=== PATIENT | female | born 1995 | race Two or more races ===

== ENCOUNTER 2024-10-11 14:53 | Outpatient (AMB) | payer MEDICAID, SELFPAY ==
--- NOTE | 2024-10-11 14:55 | OBCLNT_ITS ---
Vital Signs 10/11/24 15:08 Height 1.63 m Height Method Stated Weight 139.026 kg Weight Measurement Method Standing Scale BMI 52.6 BP 124/81 Blood Pressure Source Automatic Cuff Blood Pressure Location Left Upper Arm Position Standing Respiration 16 Pulse 87 Pulse Source Monitor Temp 97.8 F Temp Source Oral Pulse Oximetry (%) 98 Oxygen Delivery Method Room Air Allergies/Home Meds Allergies & Medications Allergies No Known Allergies Allergy (Verified 10/11/24 14:55) Intake Visit Data Collection New Patient or Established: Established Patient (seen at [facility] within 3 years) Reason for Visit:: care Seen by Clinical Staff ONLY (RN/MA): No Patient Accounts Clerk Required: No Do You Feel Safe at Home: Yes Authorities Contacted: N/A PCP or OBGYN visit in last 3 months: No Hx Now: Yes Are you currently on any form of Control: No Last menstrual period: 03/08/24 Pain Present Currently: No Pain Scale Used: Gomez-Vinson/Numerical Pain scale:: 0 Smoking Status Smoking Status: Former smoker Questionnaires Covid-19 Vaccine Questionnaire Has patient been vacinated for Covid-19 Have you been vacinated for Covid-19: No PHQ-9 PHQ-2 Over the last 2 weeks, how often have you been bothered by any of the following problems? 1. Little interest or pleasure in doing things: not at all 2. Feeling down, depressed, or hopeless: not at all Total score: 0 PHQ-9 3. Trouble falling or staying asleep, or sleeping too much: Not at all 4. Feeling tired or having little energy: Not at all 5. Poor appetite or overeating: Not at all 6. Feeling bad about yourself - or that you are a failure or have let yourself or your family down: Not at all 7. Trouble concentrating on things, such as reading the newspaper or watching television: Not at all 8. Moving or speaking so slowly that other people could have noticed? - Or the opposite - being so fidgety or restless that you have been moving around a lot more than usual: not at all 9. Thoughts that you would be better off or of hurting yourself in some way: Not at all Total score: 0 Source: Developed by Drs. Damian Masters, Jessie GomezJonathan and colleagues, with an educational carissa from [employer]. Depression screen completed yes Social History Living Situation History Marital Status: Lives With: Family Housing: House Tobacco History Smoking Status: Former smoker Second Hand Smoke Exposure: Yes Alcohol History Alcohol Intake: Current (social) Alcohol Intake Frequency: holidays/special occasions only Substance Use History Substance Use: no Domestic Abuse History Do You Feel Safe at Home: Yes Past Medical History Past Medical History Have you ever been diagnosed with any of the following: Neurological Problems Cerebrovascular Accident (CVA): No Transient Ischemic Attacks (TIA): No Dementia: No Alzheimer's Disease: No Parkinson's Disease: No Brain Tumor: No Meningitis: No Seizures: No Epilepsy: No Multiple Sclerosis: No Cerebral Palsy: No Amyotrophic Lateral Sclerosis (ALS/Kaitlin Gehrig's): No Guillain-Counce Syndrome: No Spina Bifida: No Paralysis: No Peripheral Neuropathy: No Steel's Palsy: No Subdural Hematoma: No Migraine: No Head Trauma: No Spinal Cord Injury: No Traumatic Brain Injury: No Cardiology Problems Myocardial Infarction: No Cardiac Arrhythmia: No Atrial Fibrillation: No Angina: No Heart Murmur: No Coronary Artery Disease: No Atherosclerotic Heart Disease: No Peripheral Vascular Disease: No Hypercholesterolemia: No Aneurysm: No Congestive Heart Failure: No Congenital Heart Disease: No Valvular Heart Disease: No Rheumatic Fever: No Cardiomyopathy: No Edema: No Pericarditis: No Hypertension: Yes Hypotension: No Respiratory Problems Asthma: Yes Bronchitis: No Emphysema: No Pneumonia: No Pulmonary Fibrosis: No Tuberculosis: No Pulmonary Embolism: No Pulmonary Edema: No Sleep Apnea: No CPAP Dependent: No Respiratory Aspiration: No Dyspnea: No Orthopnea: No Hx Cough: No Cough: No Wheezing: No Chest Deformities: No Smoking: No Smoking Cessation Counseling: No Smoking Exposure: Yes (FORMER) Tobacco Use: No Clubbing: No Exposure to Respiratory Irritants: No Intubation: No Stomache/Intestinal Problems Liver Cancer: No Hepatitis: No Cirrhosis: No Pancreatic Cancer: No Pancreatitis: No Celiac Disease: No Gall Bladder Disease: No Gastrointestinal Bleed: No Esophageal Varices: No Russell's Esophagus: No Colitis: No Ulcerative Colitis: No Diverticulitis: No Diverticulosis: No Ulcer: No Colorectal Cancer: No Irritable Bowel: No Crohn's Disease: No Obstructive Bowel: No Hiatal Hernia: No Hemorrhoids: No Gastroesophageal Reflux Disease: No Polyps: No Genital/Urinary Problems Chronic Kidney Disease: No Renal Disease: No Kidney Stones: No Polycystic Kidney Disease: No Neurogenic Bladder: No Inguinal Hernia: No Dialysis: No Reproductive Problems Breast Cancer: No Endometriosis: No Fibroids: No Genital Herpes: No Gonorrhea: No Pelvic Inflammatory Disease: No Polycystic Ovarian Syndrome: No Previous Pregnancies: Yes Syphilis: No Musculoskeletal Problems Muscular Dystrophy: No Myasthenia Gravis: No Marfan's Syndrome: No Bone Cancer: No Arthritis: No Head,Eye,Nose,Throat Problems Cataracts: No Glaucoma: No Blind: No Retinal Detachment: No Macular Degeneration: No Chronic Ear Infections: No Deafness: No Eye Prosthesis: No Endocrine Problems Diabetes Mellitus Type 1: Yes Diabetes Mellitus Type 2: No Hypoglycemia: No Torrington's Syndrome: No [place]'s Disease: No Hyperthyroidism: No Hypothyroidism: No Thyroid Cancer: No Parathyroid Disease: No Pituitary Disease: No Systemic Lupus Erythematosus: No Syndrome of Inappropriate Antidiuretic Hormone: No Adrenal Disease: No Graves' Disease: No Blood Problems Anemia: No Leukemia: No Hemophilia: No Thalassemia: No Sickle Cell Disease: No Clotting Problems: No Psychologic Problems Schizophrenia: No Recreational Drug Use: No Bipolar Disorder: No Depression: No Anxiety: No Behavior Problems: No Self-Mutilation: No Attention Deficit Disorder: No Attention Deficit Hyperactivity Disorder: No Depression: No Post Traumatic Stress Disorder: No Other Problems Autoimmune Disease: No Down Syndrome: No Autism: No Developmental Delay: No Cosmetic Surgery: No Shingles: No Falls: No Blood Transfusions: No Blood Transfusion Reaction: No Anesthesia Reactions: No Organ Transplant: No Surgical History Angioplasty: No Appendectomy: No Additional Surgical History: C SECTION, TONSIL REMOVAL History of Present Illness HPI Narrative Patient is a presenting for care in her third trimester, having transferred care from [facility]. She has a history of gestational diabetes in her previous , which persisted , leading to a diagnosis of type 2 diabetes. She is currently on metformin and monitors her blood glucose 2-3 times daily, primarily after lunch and dinner, with her highest recent reading being 136 mg/dL. The patient also has chronic hypertension, managed with aspirin and a once-daily medication, possibly nitrog lycerin, taken at night. She reports taking omeprazole for acid reflux and an unspecified medication for a fungal toenail infection. Her previous resulted in a section at 37 weeks due to failure to progress in labor. In her current , she denies any weight gain. Her last ultrasound was on October 04 with a high-business risk analyst, Dr. Collins, whose office is located near [facility]. The patient initially followed Dr. Quintero but has now transferred care to the current provider for the third trimester and delivery planning. She expressed initial confusion and concern about finding an office due to full schedules but is now reassured with the current care arrangement. OB Initial Visit Menstrual History Menstrual reliability: definite Flow: normal Menstrual regularity: regular Monthly: Yes Age at menarche: 11 On control pills at conception: No Date of positive home test: 05/06/24 Associated symptoms (LMP): Denies amenorrhea, nausea, vomiting, fatigue, breast tenderness, urinary frequency, irritability, bloating or other OB History : 2 Para: 1 Hx # Pregnancies: 0 Hx Total # of Abortions (Spontaneous & Elective): 0 # of Living Children: 1 Delivery History 1st : Child's name: MAURIZIO date: 05/[birth year]/21 sex: male Gestational age at delivery (weeks): 37 Delivery type: weight (lbs): 3175 g Delivery complications: GDM and GHTN, now T2DM History of depression before or after : No Infection History & Risk Evaluation History of STDs: none HIV risk evaluation: low risk Varicella/chicken pox status: immunized Infection history comments: TRICHOMONIASIS Genetic Screening & History Genetic Screening/Teratology Counseling - Includes patient, baby's father, or anyone in either family with: 1. Patient's age 35 years or older as of estimated date of delivery: No 2. Thalassemia (Equatorial [place]inean, Pashto, Mediterranean, or Background); MCV less than 80: No 3. Neural Tube Defect (Meningomyelocele, Spina Bifida, or Anencephaly): No 4. Congenital Heart Defect: No 5. Down Syndrome: No 6. Joshua-Sachs (Ashkenazi Confucianist, Cajun, Bulgarian [place]): No 7. Lea Disease (Ashkenazi Confucianist): No 8. Familial Dysautonomia (Ashkenazi Confucianist): No 9. Sickle Cell Disease or Trait (): No 10. Hemophilia or other blood disorders: No 11. Muscular Dystrophy: No 12. Cystic Fibrosis: No 13. Calvin's Chorea: No 14. Mental Retardation/Autism: No 15. Other inherited genetic or chromosomal disorder: No 16. Maternal Metabolic Disorder (EG,TYPE 1 Diabetes, PKU): No 17. Patient or baby's father had a child with defects not listed above: No 18. Recurrent loss or a stillbirth: No 19. Medications (including supplements, vitamins, herbs or otc drugs)/illicit/recreational drugs/alcohol since last menstrual period: No 20. Any other: No Infection History 1. Live with someone with TB or exposed to TB: No 2. Rash or viral illness since last menstrual period: No 3. Hepatitis B,C: No Other (see comments) Source: [employer] OB Flowsheet OB Flowsheet Initial Weight: Not Recorded Date -?-?-?-?-?-?-?-?-?-?-?-?- EGA Weight Edema CTX Effacement BP Fundal ht Pres Dilation Effacement Station Visit Note Alb Glu FHR Mov 10/11/24 -?-?-?-?-?-?-?-?-?-?-?-?- 28w 2d 139.026 kg 124/81 30 145 active Review of Systems Constitutional Constitutional: Denies fatigue Gastrointestinal Gastrointestinal: Denies bloating, Denies nausea and Denies vomiting Genitourinary Genitourinary: Denies amenorrhea and Denies urinary frequency Psychiatric Psychiatric: Denies irritability Endocrine Endocrine: Denies fatigue Exam General Limitations: no limitations General Appearance: alert, in no apparent distress, comfortable, cooperative, healthy appearing, well developed and well groomed Head Head exam: atraumatic, normocephalic and normal inspection Neck Neck exam: Present normal inspection, full ROM and trachea midline Chest Chest inspection: Present normal inspection and symmetric chest wall rise Abdominal Abdominal exam: Present soft and normal bowel sounds Exp OB exam: Present deferred Extremities Extremities exam: Present normal inspection and full ROM Neuro Neurological exam: Present alert, oriented X3 and CN II-XII intact Psych Psychiatric exam: Present normal affect and normal mood Skin Skin exam: Present warm, dry, intact and normal color Assessment & Plan Diagnosis / Problem List (1) Gestational hypertension: Status: Acute Plan: - Continue current antihypertensive regimen. - Monitor for signs of preeclampsia. (2) Type 2 diabetes mellitus affecting in third trimester, antepartum: Status: Acute Plan: - Continue current diabetes management. - Encourage weight loss (goal 10% of body weight initially). - Consider GLP-1 receptor agonist therapy as recommended by PCP. (3) Maternal care for low transverse scar from previous delivery: Status: Acute (4) Supervision of high risk , unspecified, third trimester: Status: Acute Plan: - Schedule at 38-39 weeks if blood glucose and blood pressure remain stable. - Continue current medication regimen: aspirin, antihypertensive, omeprazole, metformin, and antifungal. - Monitor fasting blood glucose levels. - Obtain records from high-risk doctor (Dr. Collins) and previous ultrasound (10/04/2024). - Follow up in 2 weeks. - Educate patient on signs of preeclampsia. - Instruct patient on normal labor signs requiring hospital visit. (5) Rh negative status during : Status: Acute Plan: Ab screen negetaive Office Procedures OB Clinic LOC & Office Proc's Nursing/Assessment Patient Status: Initial/New Patient OB Clinic Nursing Assessment: Medication Reconciliation, Update PMH in EMR and Vital Signs OB Clinic Coordination of Care: Complex Care and Chronic Disease 1-5, Education Complex Pt/Fam, Consent,records obtained, informed consent, Education Simp P t/Fam, Lab and Imaging orders, Results/Orders obtained and Staff clarify orders Special Needs: Heart tones New Patient Charge New Patient Point Assignment: 1154 New Patient Point Charge: CODING SPECIALIST HOME HEALTH Level 4 ([id number]) Antepartum Initial or Follow-up Antepartum Initial Visit: Yes OB Ultrasound OB Ultrasound Ultrasound technique:: transabdominal
[2024-10-11 15:08] VITALS: BP 124/81; PULSE 87; RESP 16; TEMP 36.6; O2SAT 98; BMI 52.6
== END 2024-10-11 15:17 | disposition home or self-care (01) ==
LOC: HODSOBC 14:53
PROVIDERS: PCP Obstetrics & Gynecology; Supervising Provider Internal Medicine; Visit Provider Obstetrics & Gynecology
DX: O09.893 Supervision of other high risk pregnancies, third trimester (principal); O10.913 Unspecified pre-existing hypertension complicating pregnancy, third trimester; O24.113 Pre-existing type 2 diabetes mellitus, in pregnancy, third trimester; O09.293 Supervision of pregnancy with other poor reproductive or obstetric history, third trimester; O34.211 Maternal care for low transverse scar from previous cesarean delivery; O99.613 Diseases of the digestive system complicating pregnancy, third trimester; K21.9 Gastro-esophageal reflux disease without esophagitis; Z87.59 Personal history of other complications of pregnancy, childbirth and the puerperium; Z3A.28 28 weeks gestation of pregnancy; Z79.84 Long term (current) use of oral hypoglycemic drugs; Z78.9 Other specified health status; Z87.891 Personal history of nicotine dependence
CPT/HCPCS: 99204; 99214; G0463

== ENCOUNTER 2024-10-25 14:16 | Outpatient (AMB) | payer MEDICAID, SELFPAY ==
--- NOTE | 2024-10-25 14:30 | AMB.OBVISIT ---
Vital Signs 10/25/24 14:31 Height 1.63 m Height Method Stated Weight 139.423 kg Weight Measurement Method Standing Scale BMI 52.4 BP 124/83 Blood Pressure Source Automatic Cuff Blood Pressure Location Left Upper Arm Position Sitting Respiration 16 Pulse 95 Pulse Source Monitor Temp 98.2 F Temp Source Oral Pulse Oximetry (%) 99 Oxygen Delivery Method Room Air Allergies/Home Meds Allergies & Medications Allergies No Known Allergies Allergy (Verified 10/25/24 14:32) Medication Reconciliation No Known Home Medications 10/25/24 [History Confirmed 10/25/24] Intake Visit Data Collection New Patient or Established: Established Patient (seen at [facility] within 3 years) Reason for Visit:: OB Check Seen by Clinical Staff ONLY (RN/MA): No Salt Plant Operator Required: No Do You Feel Safe at Home: Yes Authorities Contacted: N/A PCP or OBGYN visit in last 3 months: Yes Date of Last PCP or OBGYN visit: 10/25/24 Hx Now: Yes Are you currently on any form of Control: No Pain Present Currently: No Pain Scale Used: Gomez-Vinson/Numerical Pain scale:: 0 Smoking Status Smoking Status: Former smoker Questionnaires Covid-19 Vaccine Questionnaire Has patient been vacinated for Covid-19 Have you been vacinated for Covid-19: Yes PHQ-9 PHQ-2 Over the last 2 weeks, how often have you been bothered by any of the following problems? 1. Little interest or pleasure in doing things: not at all 2. Feeling down, depressed, or hopeless: not at all Total score: 0 PHQ-9 8. Moving or speaking so slowly that other people could have noticed? - Or the opposite - being so fidgety or restless that you have been moving around a lot more than usual: not at all Source: Developed by Drs. Damian Masters, Jessie Gomez, Jonathan Tapia and colleagues, with an educational carissa from [employer]. Depression screen completed yes Social History Living Situation History Marital Status: Lives With: Family Housing: House Tobacco History Smoking Status: Former smoker Second Hand Smoke Exposure: Yes Alcohol History Alcohol Intake: Current (social) Alcohol Intake Frequency: holidays/special occasions only Substance Use History Substance Use: no Domestic Abuse History Do You Feel Safe at Home: Yes Past Medical History Past Medical History Have you ever been diagnosed with any of the following: Neurological Problems Cerebrovascular Accident (CVA): No Transient Ischemic Attacks (TIA): No Dementia: No Alzheimer's Disease: No Parkinson's Disease: No Brain Tumor: No Meningitis: No Seizures: No Epilepsy: No Multiple Sclerosis: No Cerebral Palsy: No Amyotrophic Lateral Sclerosis (ALS/Kaitlin Gehrig's): No Guillain-Mentone Syndrome: No Spina Bifida: No Paralysis: No Peripheral Neuropathy: No Steel's Palsy: No Subdural Hematoma: No Migraine: No Head Trauma: No Spinal Cord Injury: No Traumatic Brain Injury: No Cardiology Problems Myocardial Infarction: No Cardiac Arrhythmia: No Atrial Fibrillation: No Angina: No Heart Murmur: No Coronary Artery Disease: No Atherosclerotic Heart Disease: No Peripheral Vascular Disease: No Hypercholesterolemia: No Aneurysm: No Congestive Heart Failure: No Congenital Heart Disease: No Valvular Heart Disease: No Rheumatic Fever: No Cardiomyopathy: No Edema: No Pericarditis: No Hypertension: Yes Hypotension: No Respiratory Problems Asthma: Yes Bronchitis: No Emphysema: No Pneumonia: No Pulmonary Fibrosis: No Tuberculosis: No Pulmonary Embolism: No Pulmonary Edema: No Sleep Apnea: No CPAP Dependent: No Respiratory Aspiration: No Dyspnea: No Orthopnea: No Hx Cough: No Cough: No Wheezing: No Chest Deformities: No Smoking: No Smoking Cessation Counseling: No Smoking Exposure: Yes (FORMER) Tobacco Use: No Clubbing: No Exposure to Respiratory Irritants: No Intubation: No Stomache/Intestinal Problems Liver Cancer: No Hepatitis: No Cirrhosis: No Pancreatic Cancer: No Pancreatitis: No Celiac Disease: No Gall Bladder Disease: No Gastrointestinal Bleed: No Esophageal Varices: No Russell's Esophagus: No Colitis: No Ulcerative Colitis: No Diverticulitis: No Diverticulosis: No Ulcer: No Colorectal Cancer: No Irritable Bowel: No Crohn's Disease: No Obstructive Bowel: No Hiatal Hernia: No Hemorrhoids: No Gastroesophageal Reflux Disease: No Genital/Urinary Problems Renal Disease: No Kidney Stones: No Polycystic Kidney Disease: No Neurogenic Bladder: No Inguinal Hernia: No Dialysis: No Reproductive Problems Breast Cancer: No Endometriosis: No Fibroids: No Genital Herpes: No Gonorrhea: No Pelvic Inflammatory Disease: No Polycystic Ovarian Syndrome: No Previous Pregnancies: Yes Syphilis: No Musculoskeletal Problems Muscular Dystrophy: No Myasthenia Gravis: No Marfan's Syndrome: No Bone Cancer: No Arthritis: No Head,Eye,Nose,Throat Problems Cataracts: No Glaucoma: No Blind: No Retinal Detachment: No Macular Degeneration: No Chronic Ear Infections: No Deafness: No Eye Prosthesis: No Endocrine Problems Diabetes Mellitus Type 1: Yes Diabetes Mellitus Type 2: No Hypoglycemia: No Pam's Syndrome: No Flagler's Disease: No Hyperthyroidism: No Hypothyroidism: No Thyroid Cancer: No Parathyroid Disease: No Pituitary Disease: No Systemic Lupus Erythematosus: No Syndrome of Inappropriate Antidiuretic Hormone: No Adrenal Disease: No Graves' Disease: No Blood Problems Anemia: No Leukemia: No Hemophilia: No Thalassemia: No Sickle Cell Disease: No Clotting Problems: No Psychologic Problems Schizophrenia: No Recreational Drug Use: No Bipolar Disorder: No Depression: No Anxiety: No Behavior Problems: No Self-Mutilation: No Attention Deficit Disorder: No Attention Deficit Hyperactivity Disorder: No Depression: No Post Traumatic Stress Disorder: No Other Problems Down Syndrome: No Autism: No Developmental Delay: No Cosmetic Surgery: No Shingles: No Falls: No Blood Transfusions: No Blood Transfusion Reaction: No Anesthesia Reactions: No Organ Transplant: No Surgical History Angioplasty: No Appendectomy: No History of Present Illness HPI Narrative History of Present Illness Judi Dempsey is a 29-year-old at 30 weeks and 1 day gestation presenting for follow-up. She initiated care at an outside facility and transferred care to this practice. The patient has a history of gestational hypertension, type 2 diabetes mellitus, and a previous section. She was being co-managed between her primary OB-FINANCIAL SERVICES INTERN and a high-risk OB specialist. All her previous records have been reviewed and scanned into her chart. The patient reports monitoring her blood glucose levels for the past two weeks. She typically performs two readings per day, primarily postprandial measurements. The patient acknowledges forgetting to record fasting blood glucose levels but plans to include them in future monitoring. She describes the fetus as very active, noting frequent movements. No CTX/LOF/VB, reports good FM+ Review of Systems Review of Systems Systems Reviewed: All systems reviewed, normal except as documented Visit REGINA Calculator Estimated Delivery Date Method Current WG Current Estimate 01/01/25 Ultrasound #1 30w 2d Other Estimates 12/13/24 LMP (Uncertain) 33w 0d Initial Weight: Not Recorded Date <del>?</del> EGA Weight Edema CTX Effacement BP Fundal ht Pres Dilation Effacement Station Visit Note Alb Glu FHR Mov 10/11/24 <del>?</del> 28w 2d 139.026 kg 124/81 30 145 active 10/25/24 <del>?</del> 30w 2d 139.423 kg 124/83 32 135 active Exam General Limitations: no limitations General Appearance: alert, in no apparent distress, comfortable, cooperative, healthy appearing, well developed and well groomed Head Head exam: atraumatic, normocephalic and normal inspection Neck Neck exam: Present normal inspection, full ROM and trachea midline Chest Chest inspection: Present normal inspection and symmetric chest wall rise Abdominal Abdominal exam: Present soft and normal bowel sounds Extremities Extremities exam: Present normal inspection and full ROM Back Back exam: Present normal inspection and full ROM Psych Psychiatric exam: Present normal affect and normal mood Skin Skin exam: Present warm, dry, intact and normal color Assessment & Plan Diagnosis / Problem List (1) Maternal care for low transverse scar from previous delivery: Status: Acute Plan: Patient is a 29-year-old at 30 weeks and 1 day gestation. She transferred care from an outside facility. Previous records have been reviewed and scanned into the chart. The patient reports good movement. heart rate was assessed and found to be within normal limits. - Follow-up appointment in 2 weeks - Obtain fasting blood glucose readings for next visit - Continue current medications - Repeat labs at 34 weeks to assess liver and kidney function - Initiate weekly non-stress tests (NSTs) starting at 32 weeks - Tentative scheduled for 38 weeks gestation Patient has a history of previous section, which influences the current management and delivery planning. - Planned repeat section at 38 weeks gestation, unless complications arise (2) Rh negative status during : Status: Acute (3) Gestational hypertension: Status: Acute Plan: Patient has a history of gestational hypertension. Current blood pressure was reported as okay during this visit. The condition is being monitored closely due to its potential impact on management and delivery timing. - Continue current management - Weekly NSTs to start at 32 weeks, primarily due to hypertension - Monitor for signs of preeclampsia (4) Type 2 diabetes mellitus affecting in third trimester, antepartum: Status: Acute Plan: Patient has been monitoring blood glucose levels, primarily postprandial. Reported values were reviewed and found to be within acceptable range. Fasting blood glucose levels were not recorded. - Continue current medication regimen - Patient to record and bring fasting blood glucose levels to next appointment - Maintain blood glucose monitoring, aiming for at least 2 readings per day (5) Supervision of high risk , unspecified, third trimester: Status: Acute Plan: Educated the patient on labor signs, including regular contractions, lower back pain, and changes in vaginal discharge. Advised avoiding heavy lifting and getting adequate rest. Instructed to contact the office immediately if any signs occur. Discussed the importance of a balanced diet rich in folic acid, iron, and calcium, and provided a list of recommended and to-avoid foods. Emphasized avoiding high-sugar foods to reduce gestational diabetes risk. Encouraged hydration and frequent, small meals for energy. Additional Plan Follow Up: 2 Weeks Office Procedures OB Clinic LOC & Office Proc's Nursing/Assessment Patient Status: Established Patient OB Clinic Nursing Assessment: BP Monitoring, Medication Reconciliation, Update PMH in EMR and Vital Signs OB Clinic Coordination of Care: Consent,records obtained, informed consent, Education Simp Pt/Fam, Lab and Imaging orders and Staff clarify orders Special Needs: Heart tones Established Patient Charge Established Patient Point Assignment: 120 Established Patient Point Charge: EP Level 4 (120-155)
[2024-10-25 14:31] VITALS: BP 124/83; PULSE 95; RESP 16; TEMP 36.8; O2SAT 99; BMI 52.4
== END 2024-10-25 14:40 | disposition home or self-care (01) ==
LOC: HODSOBC 14:16
PROVIDERS: PCP Physician Assistant; Referring Provider Physician Assistant; Supervising Provider Obstetrics & Gynecology; Visit Provider Obstetrics & Gynecology
DX: O09.93 Supervision of high risk pregnancy, unspecified, third trimester (principal); O26.899 Other specified pregnancy related conditions, unspecified trimester; O34.211 Maternal care for low transverse scar from previous cesarean delivery; Z67.91 Unspecified blood type, Rh negative; Z3A.30 30 weeks gestation of pregnancy
CPT/HCPCS: 99214; G0463

== ENCOUNTER 2024-11-15 14:57 | Outpatient (AMB) | payer MEDICAID, SELFPAY ==
[2024-11-15 15:09] VITALS: BP 128/78; PULSE 98; RESP 18; TEMP 35.8; O2SAT 98; BMI 52.3
--- NOTE | 2024-11-15 15:09 | OBCLNT_ITS ---
Vital Signs 11/15/24 15:09 Height 1.63 m Height Method Stated Weight 138.969 kg Weight Measurement Method Standing Scale BMI 52.3 BP 128/78 Blood Pressure Source Automatic Cuff Blood Pressure Location Left Upper Arm Position Sitting Respiration 18 Pulse 98 Pulse Source Monitor Temp 96.5 F L Temp Source Oral Pulse Oximetry (%) 98 Oxygen Delivery Method Room Air Allergies/Home Meds Allergies & Medications Allergies No Known Allergies Allergy (Verified 12/15/24 10:26) Medication Reconciliation omeprazole 20 mg capsule,delayed release 20 mg PO QDAY 90 days #90 caps 11/10/24 [Rx Confirmed 12/06/24] pen needle, diabetic 32 gauge x 1/4 (Comfort EZ Pen [place]) #100 ea 11/15/24 [Rx Confirmed 12/06/24] docusate sodium 100 mg capsule 100 mg PO QDAY 30 days #30 caps 12/16/24 [Rx] hydrocodone 5 mg-acetaminophen 325 mg tablet 1 tab PO Q6HR PRN Patient rated pain 9 to 10 7 days #28 tabs 12/16/24 [Rx] ibuprofen 400 mg tablet 800 mg (2 x 400 mg) PO Q8HR PRN Pain Scale 4-6 (Moderate 10 days #30 tabs 12/16/24 [Rx] insulin glargine 100 unit/mL (3 mL) subcutaneous pen (Lantus Solostar U-100 Insulin) 10 unit (0.1 mL) subcut QPM 30 days #3 mL 12/16/24 [Rx] labetalol 100 mg tablet 200 mg (2 x 100 mg) PO BID 30 days #120 tabs 12/16/24 [Rx] pen needle, diabetic 29 gauge x 1/2 (Comfort EZ Pen [place]) #100 ea 12/16/24 [Rx] Intake Visit Data Collection New Patient or Established: Established Patient (seen at [facility] within 3 years) Reason for Visit:: - Routine care at 33 weeks and 2 days gestation - with type 2 diabetes mellitus and gestational hypertension - Headache last week Seen by Clinical Staff ONLY (RN/MA): No Document Control Assistant Required: No Do You Feel Safe at Home: Yes Authorities Contacted: N/A PCP or OBGYN visit in last 3 months: Yes Date of Last PCP or OBGYN visit: 11/10/24 Hx Now: Yes Are you currently on any form of Control: No Pain Present Currently: No Pain Scale Used: Gomez-Vinson/Numerical Pain scale:: 0 Smoking Status Smoking Status: Former smoker Questionnaires Covid-19 Vaccine Questionnaire Has patient been vacinated for Covid-19 Have you been vacinated for Covid-19: Yes PHQ-9 PHQ-2 Over the last 2 weeks, how often have you been bothered by any of the following problems? 1. Little interest or pleasure in doing things: not at all 2. Feeling down, depressed, or hopeless: not at all Total score: 0 PHQ-9 3. Trouble falling or staying asleep, or sleeping too much: Not at all 4. Feeling tired or having little energy: Not at all 5. Poor appetite or overeating: Not at all 6. Feeling bad about yourself - or that you are a failure or have let yourself or your family down: Not at all 7. Trouble concentrating on things, such as reading the newspaper or watching television: Not at all 8. Moving or speaking so slowly that other people could have noticed? - Or the opposite - being so fidgety or restless that you have been moving around a lot more than usual: not at all 9. Thoughts that you would be better off or of hurting yourself in some way: Not at all Total score: 0 If you checked off any problems, how difficult have these problems made it for you to do your work, take care of things at home, or get along with other people?: not difficult at all Source: Developed by Drs. Damian Masters, Jessie Gomez, Jonathan Tapia and colleagues, with an educational carissa from [employer]. Depression screen completed yes Social History Living Situation History Marital Status: Lives With: Family Housing: House Tobacco History Smoking Status: Former smoker Second Hand Smoke Exposure: Yes Alcohol History Alcohol Intake: Current (social) Alcohol Intake Frequency: holidays/special occasions only Substance Use History Substance Use: no Domestic Abuse History Do You Feel Safe at Home: Yes Past Medical History Past Medical History Have you ever been diagnosed with any of the following: Neurological Problems Cerebrovascular Accident (CVA): No Transient Ischemic Attacks (TIA): No Dementia: No Alzheimer's Disease: No Parkinson's Disease: No Brain Tumor: No Meningitis: No Seizures: No Epilepsy: No Multiple Sclerosis: No Cerebral Palsy: No Amyotrophic Lateral Sclerosis (ALS/Kaitlin Gehrig's): No Guillain-[place] Syndrome: No Spina Bifida: No Paralysis: No Peripheral Neuropathy: No Steel's Palsy: No Subdural Hematoma: No Migraine: No Head Trauma: No Spinal Cord Injury: No Traumatic Brain Injury: No Cardiology Problems Myocardial Infarction: No Cardiac Arrhythmia: No Atrial Fibrillation: No Angina: No Heart Murmur: No Coronary Artery Disease: No Atherosclerotic Heart Disease: No Peripheral Vascular Disease: No Hypercholesterolemia: No Aneurysm: No Congestive Heart Failure: No Congenital Heart Disease: No Valvular Heart Disease: No Rheumatic Fever: No Cardiomyopathy: No Edema: No Pericarditis: No Hypertension: Yes Hypotension: No Respiratory Problems Asthma: Yes Bronchitis: No Emphysema: No Pneumonia: No Pulmonary Fibrosis: No Tuberculosis: No Pulmonary Embolism: No Pulmonary Edema: No Sleep Apnea: No CPAP Dependent: No Respiratory Aspiration: No Dyspnea: No Orthopnea: No Hx Cough: No Cough: No Wheezing: No Chest Deformities: No Smoking: No Smoking Cessation Counseling: No Smoking Exposure: Yes (FORMER) Tobacco Use: No Clubbing: No Exposure to Respiratory Irritants: No Intubation: No Stomache/Intestinal Problems Liver Cancer: No Hepatitis: No Cirrhosis: No Pancreatic Cancer: No Pancreatitis: No Celiac Disease: No Gall Bladder Disease: No Gastrointestinal Bleed: No Esophageal Varices: No Russell's Esophagus: No Colitis: No Ulcerative Colitis: No Diverticulitis: No Diverticulosis: No Ulcer: No Colorectal Cancer: No Irritable Bowel: No Crohn's Disease: No Obstructive Bowel: No Hiatal Hernia: No Hemorrhoids: No Gastroesophageal Reflux Disease: No Genital/Urinary Problems Renal Disease: No Kidney Stones: No Polycystic Kidney Disease: No Neurogenic Bladder: No Inguinal Hernia: No Dialysis: No Reproductive Problems Breast Cancer: No Endometriosis: No Fibroids: No Genital Herpes: No Gonorrhea: No Pelvic Inflammatory Disease: No Polycystic Ovarian Syndrome: No Previous Pregnancies: Yes Syphilis: No Musculoskeletal Problems Muscular Dystrophy: No Myasthenia Gravis: No Marfan's Syndrome: No Bone Cancer: No Arthritis: No Head,Eye,Nose,Throat Problems Cataracts: No Glaucoma: No Blind: No Retinal Detachment: No Macular Degeneration: No Chronic Ear Infections: No Deafness: No Eye Prosthesis: No Endocrine Problems Diabetes Mellitus Type 1: Yes Diabetes Mellitus Type 2: No Hypoglycemia: No Pam's Syndrome: No Selvin's Disease: No Hyperthyroidism: No Hypothyroidism: No Thyroid Cancer: No Parathyroid Disease: No Pituitary Disease: No Systemic Lupus Erythematosus: No Syndrome of Inappropriate Antidiuretic Hormone: No Adrenal Disease: No Graves' Disease: No Blood Problems Anemia: No Leukemia: No Hemophilia: No Thalassemia: No Sickle Cell Disease: No Clotting Problems: No Psychologic Problems Schizophrenia: No Recreational Drug Use: No Bipolar Disorder: No Depression: No Anxiety: No Behavior Problems: No Self-Mutilation: No Attention Deficit Disorder: No Attention Deficit Hyperactivity Disorder: No Depression: No Post Traumatic Stress Disorder: No Other Problems Down Syndrome: No Autism: No Developmental Delay: No Cosmetic Surgery: No Shingles: No Falls: No Blood Transfusions: No Blood Transfusion Reaction: No Anesthesia Reactions: No Organ Transplant: No Surgical History Angioplasty: No Appendectomy: No Visit REGINA Calculator Estimated Delivery Date Method Current WG Current Estimate 01/01/25 Ultrasound #1 37w 5d Other Estimates 12/13/24 LMP (Uncertain) 40w 3d Initial Weight: Not Recorded Date -?-?-?-?-?-?-?-?-?-?-?-?- EGA Weight Edema CTX Effacement BP Fundal ht Pres Dilation Effacement Station Visit Note Alb Glu FHR Mov 10/11/24 -?-?-?-?-?-?-?-?-?-?-?-?- 28w 2d 139.026 kg 124/81 30 145 active 10/25/24 -?-?-?-?-?-?-?-?-?-?-?-?- 30w 2d 139.423 kg 124/83 32 135 active 11/15/24 -?-?-?-?-?-?-?-?-?-?-?-?- 33w 2d 138.969 kg 128/78 No CTX/LOF/VB. Reports good FM. No GROVES/VS, Epig/RUQ pain. Type 2 DM and gestational hypertension. Headache last week, attributed to hospital visits. BP good today. On metformin 1000 mg BID, aspirin, omeprazole, and ketoconazole shampoo (used 1?2x/week). Expressed concern about ketoconazole use in . Fasting sugars elevated (123?126 mg/dL). Attending 2x weekly NSTs and ultrasounds. FHR: 147 bpm (normal). Assessment & Plan: 33w2d with GDM and gestational hypertension. Mildly elevated fasting BGs on metformin alone. Adjust metformin to 1000 mg QD and add n ighttime insulin Provide insulin instructions and monitor fasting BG daily x 1 week Follow up in 1 week to review glucose lo g Refill aspirin and continue Start low-dose antihypertensive (conside r nifedipine or Limbitrol) Continue twice weekly NSTs and ultrasoun ds Limit ketoconazole shampoo to 1x/week Resolve referral issue with Dr. Moreno/Jelani Collins Discuss timing based on glycem ic control (36?38w) Reviewed signs of labor and care counseling 145 active 11/29/24 -?-?--?-?-?-?-?-?-?-?-?-?- 35w 2d 139.026 kg 123/83 Pre gnancy with chronic hypertension - Increase labetalol to 400 mg PO BID fo r better 24-hour blood pressure control - Continue current schedule of NSTs and ultrasounds on Mondays and - Monitor biophysical profile scor es and amniotic fluid levels - Continue blood glucose monitoring; not ed to be really good - Follow-up appointment scheduled in one week - Inform patient that [facility] is not av ailable at this hospital - Plan to use pre-neurodressing with adh esive for incision care post- section - Educate patient on benefits: seals a scott, prevents contamination, can be left in place for 2 weeks, allows showering - Inform patient that outcomes are com parable to [facility] - Schedule removal of dressing in office after 2 weeks post-operation 150 active 12/06/24 -?-?-?-?-?-?-?-?-?-?-?-?- 36w 2d 140.727 kg 134/85 - C esarean section scheduled for December 15, 2024 at 12:30 PM - Patient to check in at 10:00 AM - NPO after midnight, including medica tions - Advised to hydrate well before midni ght - No further visits scheduled b efore section - Provided work note for maternity leave - Leave to start on Thursday (November) - Initial leave duration set for 2 thus from section date - Possibility of extension if needed 145 active Assessment & Plan Diagnosis / Problem List (1) Type 2 diabetes mellitus without complications: Status: Acute (2) Gestational [-induced] hypertension without significant proteinuria, third trimester: Status: Acute (3) Seborrheic dermatitis, unspecified: Status: Acute Plan Problem List - Type 2 Diabetes Mellitus (E11.9) - Gestational hypertension (O13) - , 33 weeks and 2 days gestation (Z33.1) - Seborrheic dermatitis (L21.9) - Dandruff (L21.0) Assessment - at 33 weeks 2 days gestation, REGINA 01-01-2025 - Type 2 diabetes mellitus - Gestational hypertension - Fasting blood sugars elevated (126 and 123) - Currently on metformin 1000 mg BID - heart rate 147 bpm - Recent headache - Seborrheic dermatitis treated with ketoconazole shampoo Plan - Switch to beta rodo (e.g., Limbitrol) or calcium channel rodo (e.g., nifedipine) for blood pressure management - Start small dose of blood pressure medication - Continue aspirin; patient needs refill - Reduce ketoconazole shampoo use to once weekly - Adjust metformin to 1000 mg once daily and add nighttime insulin - Provide instructions for insulin use - Patient to perform daily fasting blood sugar checks for one week - Follow up in one week to review blood sugar logs - Continue twice weekly monitoring with ultrasounds and NSTs - Resolve ultrasound referral issue with Dr. Moreno and Dr. Collins's office - Determine date (potentially at 36 or 38 weeks) based on blood sugar control Educated the patient on labor signs, including regular contractions, lower back pain, and changes in vaginal discharge. Advised avoiding heavy lifting and getting adequate rest. Instructed to contact the office immediately if any signs occur. Discussed the importance of a balanced diet rich in folic acid, iron, and calcium, and provided a list of recommended and to-avoid foods. Emphasized avoiding high-sugar foods to reduce gestational diabetes risk. Encouraged hydration and frequent, small meals for energy.. Office Procedures OB Clinic LOC & Office Proc's Nursing/Assessment Patient Status: Established Patient OB Clinic Nursing Assessment: BP Monitoring, Medication Reconciliation, Update PMH in EMR and Vital Signs OB Clinic Coordination of Care: Consent,records obtained, informed consent, Education Simp Pt/Fam and Staff clarify orders Special Needs: Heart tones Established Patient Charge Established Patient Point Assignment: 105 Established Patient Point Charge: Level 3 (00-814)
== END 2024-11-15 15:39 | disposition home or self-care (01) ==
LOC: HODSOBC 14:57
PROVIDERS: PCP Obstetrics & Gynecology; Referring Provider Obstetrics & Gynecology; Supervising Provider Obstetrics & Gynecology; Visit Provider Obstetrics & Gynecology
DX: O24.113 Pre-existing type 2 diabetes mellitus, in pregnancy, third trimester (principal); E11.9 Type 2 diabetes mellitus without complications; O13.3 Gestational [pregnancy-induced] hypertension without significant proteinuria, third trimester; O99.713 Diseases of the skin and subcutaneous tissue complicating pregnancy, third trimester; L21.9 Seborrheic dermatitis, unspecified; Z79.84 Long term (current) use of oral hypoglycemic drugs; Z3A.33 33 weeks gestation of pregnancy
CPT/HCPCS: 99213; G0463

== ENCOUNTER 2024-11-22 14:21 | Outpatient (AMB) | payer MEDICAID, SELFPAY ==
[2024-11-22 14:33] VITALS: BP 131/78; PULSE 88; RESP 16; TEMP 36.6; O2SAT 96; BMI 52.4
--- NOTE | 2024-11-22 14:33 | AMB.OBVISIT ---
Vital Signs 11/22/24 14:33 Height 1.63 m Height Method Stated Weight 139.366 kg Weight Measurement Method Standing Scale BMI 52.4 BP 131/78 H Blood Pressure Source Automatic Cuff Blood Pressure Location Left Upper Arm Position Sitting Respiration 16 Pulse 88 Pulse Source Monitor Temp 98 F Temp Source Oral Pulse Oximetry (%) 96 Oxygen Delivery Method Room Air Allergies/Home Meds Allergies & Medications Allergies No Known Allergies Allergy (Verified 11/22/24 14:34) Medication Reconciliation ketoconazole 2 % shampoo 1 applic topical Q14D 30 days #120 mL 11/10/24 [Rx Confirmed 11/22/24] omeprazole 20 mg capsule,delayed release 20 mg PO QDAY 90 days #90 caps 11/10/24 [Rx Confirmed 11/22/24] aspirin 81 mg tablet,delayed release 81 mg PO QDAY 60 days #60 tabs 11/15/24 [Rx Confirmed 11/22/24] insulin glargine 100 unit/mL subcutaneous solution (Lantus U-100 Insulin) 20 unit (0.2 mL) subcut QPM 30 days #6 mL 11/15/24 [Rx Confirmed 11/22/24] ketoconazole 2 % shampoo 1 applic topical Q7D 60 days #120 mL 11/15/24 [Rx Confirmed 11/22/24] pen needle, diabetic 32 gauge x 1/4 (Comfort EZ Pen [place]) #100 ea 11/15/24 [Rx Confirmed 11/22/24] labetalol 200 mg tablet 400 mg (2 x 200 mg) PO BID 30 days #120 tabs 11/22/24 [Rx Confirmed 11/22/24] Intake Visit Data Collection New Patient or Established: Established Patient (seen at [facility] within 3 years) Reason for Visit:: CARE Seen by Clinical Staff ONLY (RN/MA): No Human Resources Intern Required: No Do You Feel Safe at Home: Yes Authorities Contacted: N/A PCP or OBGYN visit in last 3 months: Yes Hx Now: Yes Are you currently on any form of Control: No Pain Present Currently: No Pain Scale Used: Gomez-Vinson/Numerical Pain scale:: 0 Smoking Status Smoking Status: Former smoker Questionnaires Covid-19 Vaccine Questionnaire Has patient been vacinated for Covid-19 Have you been vacinated for Covid-19: Yes PHQ-9 PHQ-2 Over the last 2 weeks, how often have you been bothered by any of the following problems? 1. Little interest or pleasure in doing things: not at all 2. Feeling down, depressed, or hopeless: not at all Total score: 0 PHQ-9 3. Trouble falling or staying asleep, or sleeping too much: Not at all 4. Feeling tired or having little energy: Not at all 5. Poor appetite or overeating: Not at all 6. Feeling bad about yourself - or that you are a failure or have let yourself or your family down: Not at all 7. Trouble concentrating on things, such as reading the newspaper or watching television: Not at all 8. Moving or speaking so slowly that other people could have noticed? - Or the opposite - being so fidgety or restless that you have been moving around a lot more than usual: not at all 9. Thoughts that you would be better off or of hurting yourself in some way: Not at all Source: Developed by Drs. Damian Masters, Jessie Gomez, Jonathan Tapia and colleagues, with an educational carissa from [employer]. Depression screen completed yes Social History Living Situation History Marital Status: Lives With: Family Housing: House Tobacco History Smoking Status: Former smoker Second Hand Smoke Exposure: Yes Alcohol History Alcohol Intake: Current (social) Alcohol Intake Frequency: holidays/special occasions only Substance Use History Substance Use: no Domestic Abuse History Do You Feel Safe at Home: Yes Past Medical History Past Medical History Have you ever been diagnosed with any of the following: Neurological Problems Cerebrovascular Accident (CVA): No Transient Ischemic Attacks (TIA): No Dementia: No Alzheimer's Disease: No Parkinson's Disease: No Brain Tumor: No Meningitis: No Seizures: No Epilepsy: No Multiple Sclerosis: No Cerebral Palsy: No Amyotrophic Lateral Sclerosis (ALS/Kaitlin Gehrig's): No Guillain-[place] Syndrome: No Spina Bifida: No Paralysis: No Peripheral Neuropathy: No Steel's Palsy: No Subdural Hematoma: No Migraine: No Head Trauma: No Spinal Cord Injury: No Traumatic Brain Injury: No Cardiology Problems Myocardial Infarction: No Cardiac Arrhythmia: No Atrial Fibrillation: No Angina: No Heart Murmur: No Coronary Artery Disease: No Atherosclerotic Heart Disease: No Peripheral Vascular Disease: No Hypercholesterolemia: No Aneurysm: No Congestive Heart Failure: No Congenital Heart Disease: No Valvular Heart Disease: No Rheumatic Fever: No Cardiomyopathy: No Edema: No Pericarditis: No Hypertension: Yes Hypotension: No Respiratory Problems Asthma: Yes Bronchitis: No Emphysema: No Pneumonia: No Pulmonary Fibrosis: No Tuberculosis: No Pulmonary Embolism: No Pulmonary Edema: No Sleep Apnea: No CPAP Dependent: No Respiratory Aspiration: No Dyspnea: No Orthopnea: No Hx Cough: No Cough: No Wheezing: No Chest Deformities: No Smoking: No Smoking Cessation Counseling: No Smoking Exposure: Yes (FORMER) Tobacco Use: No Clubbing: No Exposure to Respiratory Irritants: No Intubation: No Stomache/Intestinal Problems Liver Cancer: No Hepatitis: No Cirrhosis: No Pancreatic Cancer: No Pancreatitis: No Celiac Disease: No Gall Bladder Disease: No Gastrointestinal Bleed: No Esophageal Varices: No Russell's Esophagus: No Colitis: No Ulcerative Colitis: No Diverticulitis: No Diverticulosis: No Ulcer: No Colorectal Cancer: No Irritable Bowel: No Crohn's Disease: No Obstructive Bowel: No Hiatal Hernia: No Hemorrhoids: No Gastroesophageal Reflux Disease: No Genital/Urinary Problems Renal Disease: No Kidney Stones: No Polycystic Kidney Disease: No Neurogenic Bladder: No Inguinal Hernia: No Dialysis: No Reproductive Problems Breast Cancer: No Endometriosis: No Fibroids: No Genital Herpes: No Gonorrhea: No Pelvic Inflammatory Disease: No Polycystic Ovarian Syndrome: No Previous Pregnancies: Yes Syphilis: No Musculoskeletal Problems Muscular Dystrophy: No Myasthenia Gravis: No Marfan's Syndrome: No Bone Cancer: No Arthritis: No Head,Eye,Nose,Throat Problems Cataracts: No Glaucoma: No Blind: No Retinal Detachment: No Macular Degeneration: No Chronic Ear Infections: No Deafness: No Eye Prosthesis: No Endocrine Problems Diabetes Mellitus Type 1: Yes Diabetes Mellitus Type 2: No Hypoglycemia: No [place]'s Syndrome: No Selvin's Disease: No Hyperthyroidism: No Hypothyroidism: No Thyroid Cancer: No Parathyroid Disease: No Pituitary Disease: No Systemic Lupus Erythematosus: No Syndrome of Inappropriate Antidiuretic Hormone: No Adrenal Disease: No Graves' Disease: No Blood Problems Anemia: No Leukemia: No Hemophilia: No Thalassemia: No Sickle Cell Disease: No Clotting Problems: No Psychologic Problems Schizophrenia: No Recreational Drug Use: No Bipolar Disorder: No Depression: No Anxiety: No Behavior Problems: No Self-Mutilation: No Attention Deficit Disorder: No Attention Deficit Hyperactivity Disorder: No Depression: No Post Traumatic Stress Disorder: No Other Problems Down Syndrome: No Autism: No Developmental Delay: No Cosmetic Surgery: No Shingles: No Falls: No Blood Transfusions: No Blood Transfusion Reaction: No Anesthesia Reactions: No Organ Transplant: No Surgical History Angioplasty: No Appendectomy: No Visit REGINA Calculator Estimated Delivery Date Method Current WG Current Estimate 01/01/25 Ultrasound #1 34w 2d Other Estimates 12/13/24 LMP (Uncertain) 37w 0d Initial Weight: Not Recorded Date <del>?</del> EGA Weight Edema CTX Effacement BP Fundal ht Pres Dilation Effacement Station Visit Note Alb Glu FHR Mov 10/11/24 <del>?</del> 28w 2d 139.026 kg 124/81 30 145 active 10/25/24 <del>?</del> 30w 2d 139.423 kg 124/83 32 135 active Office Procedures OB Clinic LOC & Office Proc's Nursing/Assessment Patient Status: Established Patient OB Clinic Nursing Assessment: Medication Reconciliation, Update PMH in EMR and Vital Signs OB Clinic Coordination of Care: Complex Care and Chronic Disease 1-5, Consent,records obtained, informed consent, Education Simp Pt/Fam, Results/Orders obtained and Staff clarify orders Special Needs: Heart tones Established Patient Charge Established Patient Point Assignment: 120 Established Patient Point Charge: EP Level 4 (120-155)
== END 2024-11-22 14:48 | disposition home or self-care (01) ==
LOC: HODSOBC 14:21
PROVIDERS: PCP Obstetrics & Gynecology; Referring Provider Obstetrics & Gynecology; Supervising Provider Obstetrics & Gynecology; Visit Provider Obstetrics & Gynecology
DX: Z34.83 Encounter for supervision of other normal pregnancy, third trimester (principal); Z3A.34 34 weeks gestation of pregnancy
CPT/HCPCS: 99214; G0463

== ENCOUNTER 2024-11-29 13:32 | Outpatient (AMB) | payer MEDICAID, SELFPAY ==
[2024-11-29 13:55] VITALS: BP 123/83; PULSE 106; RESP 18; TEMP 36.3; O2SAT 97; BMI 52.3
--- NOTE | 2024-11-29 13:55 | OBCLNT_ITS ---
Vital Signs 11/29/24 13:55 Height 1.63 m Height Method Stated Weight 139.026 kg Weight Measurement Method Standing Scale BMI 52.3 BP 123/83 Blood Pressure Source Automatic Cuff Blood Pressure Location Left Upper Arm Position Sitting Respiration 18 Pulse 106 H Pulse Source Monitor Temp 97.4 F Temp Source Oral Pulse Oximetry (%) 97 Oxygen Delivery Method Room Air Allergies/Home Meds Allergies & Medications Allergies No Known Allergies Allergy (Verified 11/29/24 13:56) Medication Reconciliation ketoconazole 2 % shampoo 1 applic topical Q14D 30 days #120 mL 11/10/24 [Rx Confirmed 11/29/24] omeprazole 20 mg capsule,delayed release 20 mg PO QDAY 90 days #90 caps 11/10/24 [Rx Confirmed 11/29/24] aspirin 81 mg tablet,delayed release 81 mg PO QDAY 60 days #60 tabs 11/15/24 [Rx Confirmed 11/29/24] insulin glargine 100 unit/mL subcutaneous solution (Lantus U-100 Insulin) 20 unit (0.2 mL) subcut QPM 30 days #6 mL 11/15/24 [Rx Confirmed 11/29/24] ketoconazole 2 % shampoo 1 applic topical Q7D 60 days #120 mL 11/15/24 [Rx Confirmed 11/29/24] pen needle, diabetic 32 gauge x 1/4 (Comfort EZ Pen [place]) #100 ea 11/15/24 [Rx Confirmed 11/29/24] labetalol 200 mg tablet 400 mg (2 x 200 mg) PO BID 30 days #120 tabs 11/22/24 [Rx Confirmed 11/29/24] Intake Visit Data Collection New Patient or Established: Established Patient (seen at [facility] within 3 years) Reason for Visit:: CARE Seen by Clinical Staff ONLY (RN/MA): No Actimize Architect Required: No Do You Feel Safe at Home: Yes Authorities Contacted: N/A PCP or OBGYN visit in last 3 months: Yes Hx Now: Yes Are you currently on any form of Control: No Pain Present Currently: No Pain Scale Used: Gomez-Vinson/Numerical Pain scale:: 0 Smoking Status Smoking Status: Former smoker Questionnaires Covid-19 Vaccine Questionnaire Has patient been vacinated for Covid-19 Have you been vacinated for Covid-19: No PHQ-9 PHQ-2 Over the last 2 weeks, how often have you been bothered by any of the following problems? 1. Little interest or pleasure in doing things: not at all 2. Feeling down, depressed, or hopeless: not at all Total score: 0 PHQ-9 3. Trouble falling or staying asleep, or sleeping too much: Not at all 4. Feeling tired or having little energy: Not at all 5. Poor appetite or overeating: Not at all 6. Feeling bad about yourself - or that you are a failure or have let yourself or your family down: Not at all 7. Trouble concentrating on things, such as reading the newspaper or watching television: Not at all 8. Moving or speaking so slowly that other people could have noticed? - Or the opposite - being so fidgety or restless that you have been moving around a lot more than usual: not at all 9. Thoughts that you would be better off or of hurting yourself in some way: Not at all Total score: 0 Source: Developed by Drs. Damian Masters, Jessie Gomez, Jonathan Tapia and colleagues, with an educational carissa from [employer]. Depression screen completed yes Social History Living Situation History Lives With: Family Housing: House Tobacco History Smoking Status: Former smoker Second Hand Smoke Exposure: Yes Alcohol History Alcohol Intake: Current (social) Alcohol Intake Frequency: holidays/special occasions only Substance Use History Substance Use: no Domestic Abuse History Do You Feel Safe at Home: Yes Past Medical History Past Medical History Have you ever been diagnosed with any of the following: Neurological Problems Cerebrovascular Accident (CVA): No Transient Ischemic Attacks (TIA): No Dementia: No Alzheimer's Disease: No Parkinson's Disease: No Brain Tumor: No Meningitis: No Seizures: No Epilepsy: No Multiple Sclerosis: No Cerebral Palsy: No Amyotrophic Lateral Sclerosis (ALS/Kaitlin Gehrig's): No Guillain-[place] Syndrome: No Spina Bifida: No Paralysis: No Peripheral Neuropathy: No Steel's Palsy: No Subdural Hematoma: No Migraine: No Head Trauma: No Spinal Cord Injury: No Traumatic Brain Injury: No Cardiology Problems Myocardial Infarction: No Cardiac Arrhythmia: No Atrial Fibrillation: No Angina: No Heart Murmur: No Coronary Artery Disease: No Atherosclerotic Heart Disease: No Peripheral Vascular Disease: No Hypercholesterolemia: No Aneurysm: No Congestive Heart Failure: No Congenital Heart Disease: No Valvular Heart Disease: No Rheumatic Fever: No Cardiomyopathy: No Edema: No Pericarditis: No Hypertension: Yes Hypotension: No Respiratory Problems Asthma: Yes Bronchitis: No Emphysema: No Pneumonia: No Pulmonary Fibrosis: No Tuberculosis: No Pulmonary Embolism: No Pulmonary Edema: No Sleep Apnea: No CPAP Dependent: No Respiratory Aspiration: No Dyspnea: No Orthopnea: No Hx Cough: No Cough: No Wheezing: No Chest Deformities: No Smoking: No Smoking Cessation Counseling: No Smoking Exposure: Yes (FORMER) Tobacco Use: No Clubbing: No Exposure to Respiratory Irritants: No Intubation: No Stomache/Intestinal Problems Liver Cancer: No Hepatitis: No Cirrhosis: No Pancreatic Cancer: No Pancreatitis: No Celiac Disease: No Gall Bladder Disease: No Gastrointestinal Bleed: No Esophageal Varices: No Russell's Esophagus: No Colitis: No Ulcerative Colitis: No Diverticulitis: No Diverticulosis: No Ulcer: No Colorectal Cancer: No Irritable Bowel: No Crohn's Disease: No Obstructive Bowel: No Hiatal Hernia: No Hemorrhoids: No Gastroesophageal Reflux Disease: No Genital/Urinary Problems Renal Disease: No Kidney Stones: No Polycystic Kidney Disease: No Neurogenic Bladder: No Inguinal Hernia: No Dialysis: No Reproductive Problems Breast Cancer: No Endometriosis: No Fibroids: No Genital Herpes: No Gonorrhea: No Pelvic Inflammatory Disease: No Polycystic Ovarian Syndrome: No Previous Pregnancies: Yes Syphilis: No Musculoskeletal Problems Muscular Dystrophy: No Myasthenia Gravis: No Marfan's Syndrome: No Bone Cancer: No Arthritis: No Head,Eye,Nose,Throat Problems Cataracts: No Glaucoma: No Blind: No Retinal Detachment: No Macular Degeneration: No Chronic Ear Infections: No Deafness: No Eye Prosthesis: No Endocrine Problems Diabetes Mellitus Type 1: Yes Diabetes Mellitus Type 2: No Hypoglycemia: No Pam's Syndrome: No Napavine's Disease: No Hyperthyroidism: No Hypothyroidism: No Thyroid Cancer: No Parathyroid Disease: No Pituitary Disease: No Systemic Lupus Erythematosus: No Syndrome of Inappropriate Antidiuretic Hormone: No Adrenal Disease: No Graves' Disease: No Blood Problems Anemia: No Leukemia: No Hemophilia: No Thalassemia: No Sickle Cell Disease: No Clotting Problems: No Psychologic Problems Schizophrenia: No Recreational Drug Use: No Bipolar Disorder: No Depression: No Anxiety: No Behavior Problems: No Self-Mutilation: No Attention Deficit Disorder: No Attention Deficit Hyperactivity Disorder: No Depression: No Post Traumatic Stress Disorder: No Other Problems Down Syndrome: No Autism: No Developmental Delay: No Cosmetic Surgery: No Shingles: No Falls: No Blood Transfusions: No Blood Transfusion Reaction: No Anesthesia Reactions: No Organ Transplant: No Surgical History Angioplasty: No Appendectomy: No History of Present Illness HPI Narrative Judi Dempsey, a patient with a history of gestational diabetes and hypertension, presents for a routine follow-up. She is currently taking labetalol for blood pressure management. The patient reports that she had been taking her labetalol incorrectly, only taking 100 mg once daily instead of the prescribed 200 mg twice daily. She has since corrected this and is now taking 200 mg twice daily. Her blood sugars have been really good, and she confirms regular attendance at non-stress tests (NSTs) and ultrasounds on Mondays and . The patient mentions that her most recent ultrasound showed a score of 8 out of 8, which she understands to be positive. She also reports good movement and adequate amniotic fluid levels. Judi inquires about the possibility of using a wound VAC after her upcoming section, as she had with her previous delivery. She expresses no specific concerns or symptoms related to her current . Visit OB Visit Log OB Flowsheet Initial Weight: Not Recorded Date -?-?-?-?-?-?-?-?-?-?-?-?- EGA Weight Edema CTX Effacement BP Fundal ht Pres Dilation Effacement Station Visit Note Alb Glu FHR Mov 10/11/24 -?-?-?-?-?-?-?-?-?-?-?-?- 28w 2d 139.026 kg 124/81 30 145 active 10/25/24 -?-?-?-?-?-?-?-?-?-?-?-?- 30w 2d 139.423 kg 124/83 32 135 active 11/29/24 -?-?-?-?-?-?-?-?-?-?-?-?- 35w 2d 139.026 kg 123/83 Pre gnancy with chronic hypertension - Increase labetalol to 400 mg PO BID fo r better 24-hour blood pressure control - Continue current schedule of NSTs and ultrasounds on Mondays and - Monitor biophysical profile scor es and amniotic fluid levels - Continue blood glucose monitoring; not ed to be really good - Follow-up appointment scheduled in one week - Inform patient that WoundVAC is not av ailable at this hospital - Plan to use pre-neurodressing with adh esive for incision care post- section - Educate patient on benefits: seals a scott, prevents contamination, can be left in place for 2 weeks, allows showering - Inform patient that outcomes are com parable to WoundVAC - Schedule removal of dressing in office after 2 weeks post-operation 150 active REGINA Calculator Estimated Delivery Date Method Current WG Current Estimate 01/01/25 Ultrasound #1 35w 4d Other Estimates 12/13/24 LMP (Uncertain) 38w 2d Assessment & Plan Diagnosis / Problem List (1) Rh negative status during : Status: Acute (2) Gestational hypertension: Status: Acute (3) Type 2 diabetes mellitus affecting in third trimester, antepartum: Status: Acute (4) Maternal care for low transverse scar from previous delivery: Status: Acute (5) Supervision of high risk , unspecified, third trimester: Status: Acute Plan Judi Dempsey, patient with hypertension, presenting for routine follow-up and medication management. with chronic hypertension Assessment: Patient is currently and managing chronic hypertension with labetalol. She was initially taking an inadequate dose of 100 mg once daily due to misreading the prescription. Recently increased to 200 mg twice daily, which is still suboptimal for adequate 24-hour coverage. monitoring shows reassuring results with biophysical profile scores of 8/8 and good amniotic fluid levels. Non-stress tests (NSTs) and ultrasounds are being performed regularly on Mondays and . heart rate is within normal range at 149-150 bpm. Plan: - Increase labetalol to 400 mg PO BID for better 24-hour blood pressure control - Continue current schedule of NSTs and ultrasounds on Mondays and - Monitor biophysical profile scores and amniotic fluid levels - Continue blood glucose monitoring; noted to be really good - Follow-up appointment scheduled in one week Planned repeat section Assessment: Patient has a history of previous section and is planning for a repeat procedure. She inquired about the availability of wound VAC (Vacuum-Assisted Closure) therapy, which was used in her previous section under different insurance. Plan: - Inform patient that WoundVAC is not available at this hospital - Plan to use pre-neurodressing with adhesive for incision care post- section - Educate patient on benefits: seals area, prevents contamination, can be left in place for 2 weeks, allows showering - Inform patient that outcomes are comparable to WoundVAC - Schedule removal of dressing in office after 2 weeks post-operation Pt Education Educated the patient on labor signs, including regular contractions, lower back pain, and changes in vaginal discharge. Advised avoiding heavy lifting and getting adequate rest. Instructed to contact the office immediately if any signs occur. Discussed the importance of a balanced diet rich in folic acid, iron, and calcium, and provided a list of recommended and to-avoid foods. Emphasized avoiding high-sugar foods to reduce gestational diabetes risk. Encouraged hydration and frequent, small meals for energy. Office Procedures OB Clinic LOC & Office Proc's Nursing/Assessment Patient Status: Established Patient OB Clinic Nursing Assessment: Medication Reconciliation, Update PMH in EMR and Vital Signs OB Clinic Coordination of Care: Complex Care and Chronic Disease 1-5, Consent,records obtained, informed consent, Education Simp Pt/Fam and Staff clarify orders Special Needs: Heart tones Established Patient Charge Established Patient Point Assignment: 115 Established Patient Point Charge: EP Level 3 (80-115)
== END 2024-11-29 14:14 | disposition home or self-care (01) ==
LOC: HODSOBC 13:32
PROVIDERS: PCP Obstetrics & Gynecology; Referring Provider Obstetrics & Gynecology; Supervising Provider Obstetrics & Gynecology; Visit Provider Obstetrics & Gynecology
DX: O09.893 Supervision of other high risk pregnancies, third trimester (principal); Z3A.35 35 weeks gestation of pregnancy; O10.913 Unspecified pre-existing hypertension complicating pregnancy, third trimester; O34.211 Maternal care for low transverse scar from previous cesarean delivery; O09.293 Supervision of pregnancy with other poor reproductive or obstetric history, third trimester; O24.113 Pre-existing type 2 diabetes mellitus, in pregnancy, third trimester; E11.9 Type 2 diabetes mellitus without complications; Z87.891 Personal history of nicotine dependence; Z79.4 Long term (current) use of insulin; Z79.82 Long term (current) use of aspirin; Z79.899 Other long term (current) drug therapy
CPT/HCPCS: 99213; G0463

== ENCOUNTER 2024-12-06 14:21 | Outpatient (AMB) | payer MEDICAID, SELFPAY ==
[2024-12-06 14:52] VITALS: BP 134/85; PULSE 86; RESP 18; TEMP 36.6; O2SAT 97; BMI 52.9
--- NOTE | 2024-12-06 14:52 | OBCLNT_ITS ---
Vital Signs 12/06/24 14:52 Height 1.63 m Height Method Stated Weight 140.727 kg Weight Measurement Method Standing Scale BMI 52.9 BP 134/85 H Blood Pressure Source Automatic Cuff Blood Pressure Location Right Upper Arm Position Sitting Respiration 18 Pulse 86 Pulse Source Monitor Temp 97.8 F Temp Source Temporal Artery Scan Pulse Oximetry (%) 97 Oxygen Delivery Method Room Air Allergies/Home Meds Allergies & Medications Allergies No Known Allergies Allergy (Verified 12/06/24 14:53) Medication Reconciliation ketoconazole 2 % shampoo 1 applic topical Q14D 30 days #120 mL 11/10/24 [Rx Confirmed 12/06/24] omeprazole 20 mg capsule,delayed release 20 mg PO QDAY 90 days #90 caps 11/10/24 [Rx Confirmed 12/06/24] aspirin 81 mg tablet,delayed release 81 mg PO QDAY 60 days #60 tabs 11/15/24 [Rx Confirmed 12/06/24] insulin glargine 100 unit/mL subcutaneous solution (Lantus U-100 Insulin) 20 unit (0.2 mL) subcut QPM 30 days #6 mL 11/15/24 [Rx Confirmed 12/06/24] ketoconazole 2 % shampoo 1 applic topical Q7D 60 days #120 mL 11/15/24 [Rx Confirmed 12/06/24] pen needle, diabetic 32 gauge x 1/4 (Comfort EZ Pen Wellington) #100 ea 11/15/24 [Rx Confirmed 12/06/24] labetalol 200 mg tablet 400 mg (2 x 200 mg) PO BID 30 days #120 tabs 11/22/24 [Rx Confirmed 12/06/24] Intake Visit Data Collection New Patient or Established: Established Patient (seen at [facility] within 3 years) Reason for Visit:: Routine visit for scheduled , request for maternity leave documentation Seen by Clinical Staff ONLY (RN/MA): No Paper Mill Supervisor Required: No Do You Feel Safe at Home: Yes Authorities Contacted: N/A PCP or OBGYN visit in last 3 months: Yes Hx Now: Yes Are you currently on any form of Control: No Pain Present Currently: No Pain Scale Used: Gomez-Vinson/Numerical Pain scale:: 0 Smoking Status Smoking Status: Former smoker Questionnaires Covid-19 Vaccine Questionnaire Has patient been vacinated for Covid-19 Have you been vacinated for Covid-19: No PHQ-9 PHQ-2 Over the last 2 weeks, how often have you been bothered by any of the following problems? 1. Little interest or pleasure in doing things: not at all PHQ-9 8. Moving or speaking so slowly that other people could have noticed? - Or the opposite - being so fidgety or restless that you have been moving around a lot more than usual: not at all Source: Developed by Drs. Damian Masters, Jessie Gomez, Jonathan Tapia and colleagues, with an educational carissa from [employer]. Depression screen completed yes Social History Living Situation History Lives With: Family Housing: House Tobacco History Smoking Status: Former smoker Second Hand Smoke Exposure: Yes Alcohol History Alcohol Intake: Current (social) Alcohol Intake Frequency: holidays/special occasions only Substance Use History Substance Use: no Domestic Abuse History Do You Feel Safe at Home: Yes Past Medical History Past Medical History Have you ever been diagnosed with any of the following: Neurological Problems Cerebrovascular Accident (CVA): No Transient Ischemic Attacks (TIA): No Dementia: No Alzheimer's Disease: No Parkinson's Disease: No Brain Tumor: No Meningitis: No Seizures: No Epilepsy: No Multiple Sclerosis: No Cerebral Palsy: No Amyotrophic Lateral Sclerosis (ALS/Kaitlin Gehrig's): No Guillain-Metcalfe Syndrome: No Spina Bifida: No Paralysis: No Peripheral Neuropathy: No Steel's Palsy: No Subdural Hematoma: No Migraine: No Head Trauma: No Spinal Cord Injury: No Traumatic Brain Injury: No Cardiology Problems Myocardial Infarction: No Cardiac Arrhythmia: No Atrial Fibrillation: No Angina: No Heart Murmur: No Coronary Artery Disease: No Atherosclerotic Heart Disease: No Peripheral Vascular Disease: No Hypercholesterolemia: No Aneurysm: No Congestive Heart Failure: No Congenital Heart Disease: No Valvular Heart Disease: No Rheumatic Fever: No Cardiomyopathy: No Edema: No Pericarditis: No Hypertension: Yes Hypotension: No Respiratory Problems Asthma: Yes Bronchitis: No Emphysema: No Pneumonia: No Pulmonary Fibrosis: No Tuberculosis: No Pulmonary Embolism: No Pulmonary Edema: No Sleep Apnea: No CPAP Dependent: No Respiratory Aspiration: No Dyspnea: No Orthopnea: No Hx Cough: No Cough: No Wheezing: No Chest Deformities: No Smoking: No Smoking Cessation Counseling: No Smoking Exposure: Yes (FORMER) Tobacco Use: No Clubbing: No Exposure to Respiratory Irritants: No Intubation: No Stomache/Intestinal Problems Liver Cancer: No Hepatitis: No Cirrhosis: No Pancreatic Cancer: No Pancreatitis: No Celiac Disease: No Gall Bladder Disease: No Gastrointestinal Bleed: No Esophageal Varices: No Russell's Esophagus: No Colitis: No Ulcerative Colitis: No Diverticulitis: No Diverticulosis: No Ulcer: No Colorectal Cancer: No Irritable Bowel: No Crohn's Disease: No Obstructive Bowel: No Hiatal Hernia: No Hemorrhoids: No Gastroesophageal Reflux Disease: No Genital/Urinary Problems Renal Disease: No Kidney Stones: No Polycystic Kidney Disease: No Neurogenic Bladder: No Inguinal Hernia: No Dialysis: No Reproductive Problems Breast Cancer: No Endometriosis: No Fibroids: No Genital Herpes: No Gonorrhea: No Pelvic Inflammatory Disease: No Polycystic Ovarian Syndrome: No Previous Pregnancies: Yes Syphilis: No Musculoskeletal Problems Muscular Dystrophy: No Myasthenia Gravis: No Marfan's Syndrome: No Bone Cancer: No Arthritis: No Head,Eye,Nose,Throat Problems Cataracts: No Glaucoma: No Blind: No Retinal Detachment: No Macular Degeneration: No Chronic Ear Infections: No Deafness: No Eye Prosthesis: No Endocrine Problems Diabetes Mellitus Type 1: Yes Diabetes Mellitus Type 2: No Hypoglycemia: No Pam's Syndrome: No Selvin's Disease: No Hyperthyroidism: No Hypothyroidism: No Thyroid Cancer: No Parathyroid Disease: No Pituitary Disease: No Systemic Lupus Erythematosus: No Syndrome of Inappropriate Antidiuretic Hormone: No Adrenal Disease: No Graves' Disease: No Blood Problems Anemia: No Leukemia: No Hemophilia: No Thalassemia: No Sickle Cell Disease: No Clotting Problems: No Psychologic Problems Schizophrenia: No Recreational Drug Use: No Bipolar Disorder: No Depression: No Anxiety: No Behavior Problems: No Self-Mutilation: No Attention Deficit Disorder: No Attention Deficit Hyperactivity Disorder: No Depression: No Post Traumatic Stress Disorder: No Other Problems Down Syndrome: No Autism: No Developmental Delay: No Cosmetic Surgery: No Shingles: No Falls: No Blood Transfusions: No Blood Transfusion Reaction: No Anesthesia Reactions: No Organ Transplant: No Surgical History Angioplasty: No Appendectomy: No History of Present Illness HPI Zacarias Judi Dempsey, a woman, presents for her final visit before a scheduled . She reports feeling good overall, with no significant complaints or concerns. The patient states she has been feeling well, especially since starting to use a medicine tube, which she believes has helped provide more stability. She reports the baby is active and denies experiencing headaches or any other problems. Ms. Dempsey mentions she has been feeling good and does not report any specific symptoms or discomfort related to her . Ms. Dempsey works for the [employer] and is preparing to start her maternity leave. 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 The patient appears to be adhering to her care plan and has not reported any issues with treatment or medications. Obstetric History - Current : - Scheduled for on December 15 at 12:30 PM - Patient to check in at 10:00 AM on the day of Review of Systems General: Negative for headaches. Neurological: Negative for headaches. Neurological: Negative for headaches. Visit OB Visit Log OB Flowsheet Initial Weight: Not Recorded Date -?-?-?-?-?-?-?-?-?-?-?-?- EGA Weight Edema CTX Effacement BP Fundal ht Pres Dilation Effacement Station Visit Note Alb Glu FHR Mov 10/11/24 -?-?-?-?-?-?-?-?-?-?-?-?- 28w 2d 139.026 kg 124/81 30 145 active 10/25/24 -?-?-?-?-?-?-?-?-?-?-?-?- 30w 2d 139.423 kg 124/83 32 135 active 11/29/24 -?-?-?-?-?-?-?-?-?-?-?-?- 35w 2d 139.026 kg 123/83 Pre gnancy with chronic hypertension - Increase labetalol to 400 mg PO BID fo r better 24-hour blood pressure control - Continue current schedule of NSTs and ultrasounds on Mondays and - Monitor biophysical profile scor es and amniotic fluid levels - Continue blood glucose monitoring; not ed to be really good - Follow-up appointment scheduled in one week - Inform patient that [facility] is not av ailable at this hospital - Plan to use pre-neurodressing with adh esive for incision care post- section - Educate patient on benefits: seals a scott, prevents contamination, can be left in place for 2 weeks, allows showering - Inform patient that outcomes are com parable to [facility] - Schedule removal of dressing in office after 2 weeks post-operation 150 acti ve 12/06/24 -?-?-?-?-?-?-?-?-?-?-?-?- 36w 2d 140.727 kg 134/85 - C esarean section scheduled for December 15, 2024 at 12:30 PM - Patient to check in at 10:00 AM - NPO after midnight, including medica tions - Advised to hydrate well before midni ght - No further visits scheduled b efore section - Provided work note for maternity leave - Leave to start on Thursday (November) - Initial leave duration set for 2 mon ths from section date - Possibility of extension if needed 145 active REGINA Calculator Estimated Delivery Date Method Current WG Current Estimate 01/01/25 Ultrasound #1 36w 2d Other Estimates 12/13/24 LMP (Uncertain) 39w 0d Exam General Limitations: no limitations General Appearance: alert, in no apparent distress, comfortable, cooperative, healthy appearing, well developed and well groomed Head Head exam: atraumatic, normocephalic and normal inspection Chest Chest inspection: Present normal inspection and symmetric chest wall rise Abdominal Abdominal exam: Present soft and normal bowel sounds Psych Psychiatric exam: Present normal affect and normal mood Skin Skin exam: Present warm, dry, intact and normal color Assessment & Plan Diagnosis / Problem List (1) Rh negative status during : Status: Acute (2) Gestational hypertension: Status: Acute (3) Type 2 diabetes mellitus affecting in third trimester, antepartum: Status: Acute (4) Maternal care for low transverse scar from previous delivery: Status: Acute (5) Supervision of high risk , unspecified, third trimester: Status: Acute Plan Judi Dempsey, female, presenting for final visit before scheduled section on December 15, 2024. , term Assessment: Patient is at term with a scheduled section on December 15, 2024 at 12:30 PM. She reports feeling good, especially since starting medication (specific medication not mentioned). The baby is reported to be active, and the patient denies headaches or other problems. Blood pressure was measured at 137/138, which was noted as normal. Plan: - section scheduled for December 15, 2024 at 12:30 PM - Patient to check in at 10:00 AM - NPO after midnight, including medications - Advised to hydrate well before midnight - No further visits scheduled before section - Provided work note for maternity leave - Leave to start on Thursday (December 09, 2024) - Initial leave duration set for 2 months from section date - Possibility of extension if needed The patient was counseled regarding her history of prior delivery. Options for delivery were reviewed, including planned repeat section versus trial of labor after (TOLAC). The risks associated with TOLAC, including uterine dehiscence or rupture, were discussed. Due to hospital policy, TOLAC is not permitted at [facility]. If the patient desires TOLAC, referral to an outside facility that supports this option may be considered. The patient was informed that her delivery plan will be guided by clinical indications, type of prior uterine incision, and overall maternal and health throughout the . Educated the patient on the importance of care, including taking vitamins with folic acid, iron, and calcium. Emphasized avoiding alcohol, smoking, and certain medications. Discussed common symptoms like nausea and fatigue, advising small, frequent meals and adequate hydration. Explained the need for regular check-ups and recommended safe physical activities. Instructed on signs of complications, such as severe cramping or bleeding, and when to seek immediate medical attention. Highlighted the importance of a balanced diet and avoiding high-risk foods. Encouraged open communication about any concerns or questions. Encouraged keeping up with all appointments and tests Office Procedures OB Clinic LOC & Office Proc's Nursing/Assessment Patient Status: Established Patient OB Clinic Nursing Assessment: Medication Reconciliation, Update PMH in EMR and Vital Signs OB Clinic Coordination of Care: Complex Care and Chronic Disease 1-5, Consent,records obtained, informed consent, Education Simp Pt/Fam and Staff clarify orders Established Patient Charge Established Patient Point Assignment: 85 Established Patient Point Charge: EP Level 3 (80-115)
== END 2024-12-06 15:07 | disposition home or self-care (01) ==
LOC: HODSOBC 14:21
PROVIDERS: PCP Obstetrics & Gynecology; Referring Provider Obstetrics & Gynecology; Supervising Provider Obstetrics & Gynecology; Visit Provider Obstetrics & Gynecology
DX: O09.293 Supervision of pregnancy with other poor reproductive or obstetric history, third trimester (principal); Z3A.36 36 weeks gestation of pregnancy; O09.893 Supervision of other high risk pregnancies, third trimester; O13.3 Gestational [pregnancy-induced] hypertension without significant proteinuria, third trimester; O24.113 Pre-existing type 2 diabetes mellitus, in pregnancy, third trimester; O34.211 Maternal care for low transverse scar from previous cesarean delivery; E11.9 Type 2 diabetes mellitus without complications; O26.893 Other specified pregnancy related conditions, third trimester; Z67.91 Unspecified blood type, Rh negative; Z87.891 Personal history of nicotine dependence; Z79.4 Long term (current) use of insulin; Z79.82 Long term (current) use of aspirin; Z79.899 Other long term (current) drug therapy
CPT/HCPCS: 99213; G0463

== ENCOUNTER 2024-12-12 14:14 | Outpatient (RCR) | payer MEDICAID, SELFPAY ==
--- NOTE | 2024-11-07 14:31 | XR_ITS ---
Examination: Biophysical profile, ultrasound Date and time of exam: November 07, 2024 1435 hours INDICATIONS: Diagnosis type 2 diabetes, gestational hypertension Technique: Multiple transabdominal sonographic images of the pelvis abdomen obtained. Attention is directed to the breathing movement, gross body movement, amniotic fluid volume and tone. Findings: Amniotic fluid index 21.2 cm Total biophysical profile is 8 of 8. breathing movement is 2. Gross body movement is 2. tone is 2. Qualitative amniotic fluid volume is 2 Impression: Biophysical profile is 8 of 8.
[2024-11-07 15:20] VITALS: BP 134/81; PULSE 99; RESP 16; TEMP 36.8
--- NOTE | 2024-11-10 14:34 | XR_ITS ---
Examination: Biophysical profile, ultrasound Date and time of exam: November 10, 2024 1437 hours INDICATIONS: Type 2 diabetes, diagnosis gestational hypertension Technique: Multiple transabdominal sonographic images of the pelvis abdomen obtained. Attention is directed to the breathing movement, gross body movement, amniotic fluid volume and tone. Findings: Amniotic fluid index 17.7 cm Total biophysical profile is 8 of 8. breathing movement is 2. Gross body movement is 2. tone is 2. Qualitative amniotic fluid volume is 2 Impression: Biophysical profile is 8 of 8.
[2024-11-10 15:09] VITALS: BP 134/82; PULSE 96; RESP 16; TEMP 36.8
--- NOTE | 2024-11-14 14:26 | XR_ITS ---
Examination: Biophysical profile, ultrasound Date and time of exam: November 14, 2024 1430 hours INDICATIONS: Diagnosis type 2 diabetes, diagnosis gestational hypertension Technique: Multiple transabdominal sonographic images of the pelvis abdomen obtained. Attention is directed to the breathing movement, gross body movement, amniotic fluid volume and tone. Findings: Amniotic fluid index 21.5 cm Total biophysical profile is 8 of 8. breathing movement is 2. Gross body movement is 2. tone is 2. Qualitative amniotic fluid volume is 2 Impression: Biophysical profile is 8 of 8.
[2024-11-14 15:01] VITALS: BP 125/89; PULSE 100; RESP 16; TEMP 36.7
--- NOTE | 2024-11-17 14:30 | XR_ITS ---
Examination: Biophysical profile, ultrasound Date and time of exam: November 17, 2024 1456 hours INDICATIONS: Diagnosis type 2 diabetes, diagnosis gestational hypertension Technique: Multiple transabdominal sonographic images of the pelvis abdomen obtained. Attention is directed to the breathing movement, gross body movement, amniotic fluid volume and tone. Findings: Amniotic fluid index 18.3 cm Total biophysical profile is 8 of 8. breathing movement is 2. Gross body movement is 2. tone is 2. Qualitative amniotic fluid volume is 2 Impression: Biophysical profile is 8 of 8.
[2024-11-17 15:25] VITALS: BP 138/87; PULSE 98; RESP 16; TEMP 36.8
--- NOTE | 2024-11-21 14:13 | XR_ITS ---
Examination: Biophysical profile, ultrasound Date and time of exam: November 21, 2024 at 1421 hours INDICATIONS: Diagnosis diabetes, gestational hypertension Technique: Multiple transabdominal sonographic images of the pelvis abdomen obtained. Attention is directed to the breathing movement, gross body movement, amniotic fluid volume and tone. Findings: Amniotic fluid index 11.3 cm Total biophysical profile is 8 of 8. breathing movement is 2. Gross body movement is 2. tone is 2. Qualitative amniotic fluid volume is 2 Impression: Biophysical profile is 8 of 8.
[2024-11-21 15:01] VITALS: BP 131/86; PULSE 101; RESP 16; TEMP 36.8
--- NOTE | 2024-11-24 14:29 | XR_ITS ---
Examination: Biophysical profile, ultrasound Date and time of exam: November 24, 2024 1436 hrs. Indications: Diagnosis diabetes, diagnosis gestational hypertension Technique: Multiple transabdominal sonographic images of the pelvis abdomen obtained. Attention is directed to the breathing movement, gross body movement, amniotic fluid volume and tone. Findings: Amniotic fluid index 12.7 cm Total biophysical profile is 8 of 8. breathing movement is 2. Gross body movement is 2. tone is 2. Qualitative amniotic fluid volume is 2 Impression: Biophysical profile is 8 of 8.
[2024-11-24 15:14] VITALS: BP 117/67; PULSE 90; RESP 16; TEMP 36.7
--- NOTE | 2024-11-28 14:21 | XR_ITS ---
Examination: Biophysical profile, ultrasound Date and time of exam: November 28, 2024 1440 hours INDICATIONS: Diagnosis diabetes, diagnosis gestational hypertension Technique: Multiple transabdominal sonographic images of the pelvis abdomen obtained. Attention is directed to the breathing movement, gross body movement, amniotic fluid volume and tone. Findings: Amniotic fluid index 13.9 cm Total biophysical profile is 8 of 8. breathing movement is 2. Gross body movement is 2. tone is 2. Qualitative amniotic fluid volume is 2 Impression: Biophysical profile is 8 of 8.
[2024-11-28 15:04] VITALS: BP 133/71; PULSE 82; RESP 16; TEMP 36.7
--- NOTE | 2024-12-01 14:26 | XR_ITS ---
Examination: Biophysical profile, ultrasound Date and time of exam: December 01, 2024 1453 hours INDICATIONS: Type 2 diabetes, diagnosis gestational hypertension Technique: Multiple transabdominal sonographic images of the pelvis abdomen obtained. Attention is directed to the breathing movement, gross body movement, amniotic fluid volume and tone. Findings: Amniotic fluid index 12.9 CM Total biophysical profile is 8 of 8. breathing movement is 2. Gross body movement is 2. tone is 2. Qualitative amniotic fluid volume is 2 Impression: Biophysical profile is 8 of 8.
[2024-12-01 15:22] VITALS: BP 131/74; PULSE 91; RESP 16
--- NOTE | 2024-12-05 14:26 | XR_ITS ---
Examination: Biophysical profile, ultrasound Date and time of exam: December 05, 2024 1430 hours INDICATIONS: Diagnosis type 2 diabetes, diagnosis gestational hypertension Technique: Multiple transabdominal sonographic images of the pelvis abdomen obtained. Attention is directed to the breathing movement, gross body movement, amniotic fluid volume and tone. Findings: Amniotic fluid index 10.3 cm Total biophysical profile is 8 of 8. breathing movement is 2. Gross body movement is 2. tone is 2. Qualitative amniotic fluid volume is 2 Impression: Biophysical profile is 8 of 8.
[2024-12-05 14:42] VITALS: BP 114/66; PULSE 90; RESP 18; TEMP 37.2
--- NOTE | 2024-12-08 14:27 | XR_ITS ---
Examination: Biophysical profile, ultrasound Date and time of exam: December 08, 2024 1434 hours INDICATIONS: Diagnosis type 2 diabetes, diagnosis gestational hypertension Technique: Multiple transabdominal sonographic images of the pelvis abdomen obtained. Attention is directed to the breathing movement, gross body movement, amniotic fluid volume and tone. Findings: Amniotic fluid index 7.9 cm Total biophysical profile is 8 of 8. breathing movement is 2. Gross body movement is 2. tone is 2. Qualitative amniotic fluid volume is 2 Impression: Biophysical profile is 8 of 8.
[2024-12-08 15:25] VITALS: BP 120/73; PULSE 92; RESP 18; TEMP 36.5
--- NOTE | 2024-12-12 14:23 | XR_ITS ---
Examination: Biophysical profile, ultrasound Date and time of exam: December 12, 2024 1429 hours INDICATIONS: Diagnosis type 2 diabetes, diagnosis -induced hypertension Technique: Multiple transabdominal sonographic images of the pelvis abdomen obtained. Attention is directed to the breathing movement, gross body movement, amniotic fluid volume and tone. Findings: Amniotic fluid index 18.7 cm Total biophysical profile is 8 of 8. breathing movement is 2. Gross body movement is 2. tone is 2. Qualitative amniotic fluid volume is 2 Impression: Biophysical profile is 8 of 8.
[2024-12-12 14:39] VITALS: BP 130/77; PULSE 95; RESP 16; TEMP 36.7
== END 2024-12-12 23:59 | disposition home or self-care (01) ==
LOC: S4S1 14:14
PROVIDERS: PCP Physician Assistant; Referring Provider Obstetrics & Gynecology; Visit Provider Obstetrics & Gynecology
DX: O24.113 Pre-existing type 2 diabetes mellitus, in pregnancy, third trimester (principal); E11.9 Type 2 diabetes mellitus without complications; O13.3 Gestational [pregnancy-induced] hypertension without significant proteinuria, third trimester; O26.893 Other specified pregnancy related conditions, third trimester; Z67.91 Unspecified blood type, Rh negative; O34.211 Maternal care for low transverse scar from previous cesarean delivery; O09.93 Supervision of high risk pregnancy, unspecified, third trimester; Z3A.37 37 weeks gestation of pregnancy
CPT/HCPCS: 59025; 76819

== ENCOUNTER 2024-12-15 09:58 | Inpatient (IN) | payer MEDICAID, SELFPAY ==
[2024-12-15] VITALS (34 sets, daily range): BP systolic 126–158; BP diastolic 52–98; PULSE 87–116; RESP 16–20; TEMP 36.7–37.3; O2SAT 96–99; BMI 49.4
[2024-12-15 11:24] LABS: Basophils % (Auto) 0 % (0-2.5); Eosinophils # (Auto) 0.1 Thou/mm3 (0.0-0.5); Eosinophils % (Auto) 1 % (0-10); Hematocrit 32.1 % (36.0-46.0); Hemoglobin 10.1 g/dL (12.0-16.0); Immature Granulocytes % (Auto) 1 % (0-0); Immature Granulocytes Auto 0.06 Thou/mm3 (0.00-0.00); Lymphocytes # (Auto) 2.6 Thou/mm3 (1.0-4.8); Lymphocytes % (Auto) 22 % (10-50); Mean Corpuscular HGB Conc 31.5 g/dl (31.0-37.0); Mean Corpuscular Hemoglobin 23.3 pg (25.0-35.0); Mean Corpuscular Volume 74 fL (80-100); Monocytes # (Auto) 0.6 Thou/mm3 (0.0-0.8); Monocytes % (Auto) 5 % (0-12); Neutrophils # (Auto) 8.5 Thou/mm3 (1.8-7.7); Neutrophils % (Auto) 72 % (37-80); Nucleated Red Blood Cell % 0 /100 WBC (0); Platelet Count 371 Thou/mm3 (140-440); RDW Standard Deviation 43.5 fL (36.4-46.3); Red Blood Count 4.34 Miln/mm3 (4.00-5.20); White Blood Count 11.9 Thou/mm3 (3.6-11.0)
--- NOTE | 2024-12-15 11:42 | ESHP_ITS ---
Documentation for date of: 12/15/24 OB Labor/Induct. HPI History of Present Illness Chief complaint: Scheduled repeat low-transverse caesarean section : 2 Para: 1 pregnancies: 0 Living children: 1 History of Abortions: Spontaneous and Elective: 0 History of sections: Yes History of : No Date of last menstrual period: 02/04/24 REGINA: 01/01/25 Gestational age based on last menstrual period: 46 History of present illness: Judi Dempsey is a 29-year-old at 38 weeks and 4 days gestation who presents for a scheduled repeat low-transverse caesarean section. Her estimated due date is January 01, 2025. The patient has multiple complicating factors in this , including Rh-negative status, gestational hypertension, type 2 diabetes, and a history of previous low-transverse caesarean section. The patient denies any contractions, leakage of fluid, or vaginal bleeding. She transferred care to the current provider from [facility] in her early 3rd trimester, at which time she had poor glycemic control. Since then, her diabetes has been managed using a combination of metformin, diet control, and additional interventions in collaboration with her maternal- medicine doctor. Ms. Dempsey has been adherent to her prescribed treatment regimens, which have resulted in improved glycemic control since transferring care. She has not reported any acute complications or new symptoms related to her or underlying conditions. Medications and Supplements - Metformin - Used for glycemic control - Lovenox - For DVT prophylaxis post-operatively Review of Systems Cardiovascular: Negative for contractions. Genitourinary: Negative for leakage of fluid, vaginal bleeding. History of Present Adequate Care: Yes Labs Labs: Negative: RPR, Hepatitis B, Rubella Titre, HIV, Chlamydia, Gonorrhea and Herpes Type 1 and Unknown: Group Beta Strep Review of Systems Review of Systems Systems Reviewed: All systems reviewed, normal except as documented Past Medical History Surgical History SURGICAL: Positive Section Meds Home Medications and Allergies Allergies Allergy/AdvReac Type Severity Reaction Status Date / Time No Known Allergies Allergy Verified 12/15/24 10:26 OB Exam Physical Exam Vital signs: Temp Pulse Resp BP Pulse Ox 98.8 F 100 18 138/98 H 96 12/15/24 10:30 12/15/24 10:12/15/24 10:25 12/15/24 10:12/15/24 11:37 Constitutional Constitutional: no acute distress Routine HEENT Exam Head: Present normocephalic and atraumatic Eye: Present EOMI and PERRL ENT: Present mucous membranes moist Routine Neck Exam Neck: Present supple and trachea midline Routine Cardiovascular Exam Cardiovascular: Present RRR Routine Abdominal Exam Abdominal: Present soft and normoactive bowel sounds Detailed Labor and Delivery Exam Baseline heart rate: 145 monitor accelerations: 15x15 monitor decelerations: None Routine Extremities Exam Extremities: Present full ROM Routine Skin Exam Skin: Present intact, dry and warm Routine Neurological Exam Neurological: Present alert, oriented X3 and CN II-XII intact Routine Psychiatric Exam Psychiatric: Present normal affect and normal thought process OB Results Labs 12/15/24 11:03 Labs: Short CBC 12/15/24 Range/Units 11:03 WBC 11.9 H (3.6-11.0) Thou/mm3 Hgb 10.1 L (12.0-16.0) g/dL Hct 32.1 L (36.0-46.0) % Plt Count 371 (140-440) Thou/mm3 OB Assessment & Plan Assessment and Plan (1) Rh negative status during : Status: Acute (2) Gestational hypertension: Status: Acute (3) Type 2 diabetes mellitus affecting in third trimester, antepartum: Status: Acute (4) Maternal care for low transverse scar from previous delivery: Status: Acute Assessment and plan: Judi Dempsey is a 29-year-old at 38 weeks gestation presenting for scheduled repeat low-transverse caesarean section with multiple complications including Rh-negative status, gestational hypertension, and type 2 diabetes. Scheduled repeat low-transverse caesarean section Assessment: Patient is a 29-year-old at 38 weeks gestation with an estimated due date of January 01, 2025, presenting for scheduled repeat low- transverse caesarean section. She has a history of previous low-transverse caesarean section. Current external monitoring shows baseline heart rate of 135 with moderate acceleration, moderate variability, and no decelerations. Cervical exam was deferred. Plan: - Admit to inpatient status for scheduled repeat low-transverse section - Establish IV access - Initiate IV fluids for maintenance with normal saline at 120 mL/hr - Administer Ancef 2 grams IV for surgical prophylaxis - Apply sequential compression devices (SCDs) for DVT prophylaxis - Schedule for 1230 today - Administer pre-op medications including Precedex - Anesthesia to evaluate patient for planned spinal anesthesia, with possible general anesthesia - NICU physician notified to attend delivery - 2 units of packed RBCs on hold Type 2 diabetes mellitus in Assessment: Patient has a history of type 2 diabetes with poor glycemic control noted in early 3rd trimester. Management has included metformin, diet control, and additional interventions in collaboration with maternal- medicine. Plan: - Implement post-operative glucose monitoring Gestational hypertension Assessment: Patient has been diagnosed with gestational hypertension during this . Plan: - Monitor blood pressures closely - Pre-eclampsia labs ordered Rh-negative status Assessment: Patient has been identified as Rh-negative during this . Plan: No specific plan mentioned for Rh-negative status management. Postoperative DVT prophylaxis Assessment: Given the patient's multiple risk factors including , section, and diabetes, postoperative DVT prophylaxis is indicated. Plan: - Administer Lovenox for DVT prophylaxis postoperatively (5) Supervision of high risk , unspecified, third trimester: Status: Acute
[2024-12-15] MEDS: CITRIC ACID/SODIUM CITR 15 ML UDC (BICITRA) 30 ML PO (11:44)
[2024-12-15] MEDS: ceFAZolin/D5W 2 GM IV 2 GM/100 ML BAG IV (11:45)
[2024-12-15] MEDS: FAMOTIDINE INJ 10 MG/ML VIAL 2 ML 20 MG IV (11:45)
[2024-12-15 12:16] LABS: Syphilis Nonreactive (Nonreactive)
[2024-12-15 13:25] LABS: Partial Thromboplastin Time 28.1 Seconds (22.0-36.0)
[2024-12-15 13:27] LABS: Alanine Aminotransferase < 7 U/L (10-49); Albumin, Serum 3.8 gm/dL (3.5-5.0); Albumin/Globulin Ratio 1.6 (1.2-2.2); Alkaline Phosphatase 104 U/L (46-116); Anion Gap 11 (7-16); Aspartate Amino Transferase 11 U/L (0-34); BUN/Creatinine Ratio 13 Ratio (12-20); Bilirubin,Total 0.2 mg/dL (0.3-1.2); Blood Urea Nitrogen 9 mg/dL (9-23); Calcium 9.2 mg/dL (8.3-10.6); Calcium (Corrected) 9.4 mg/dL (8.5-10.1); Carbon Dioxide 21.6 mMol/L (20.0-31.0); Chloride 108 mMol/L (98-107); Creatinine (Component) 0.7 mg/dL (0.6-1.3); Estimated Creatinine Clearance 172.1 mL/min (>60); Globulin 2.4 gm/dL (2.3-3.5); Glucose 142 mg/dL (74-106); LDH (Lactate Dehydrogenase) 128 U/L (120-246); Osmolality,Calculated 281 (275-295); Potassium 4.5 mMol/L (3.4-5.1); Sodium 141 mMol/L (136-145); Total Protein 6.2 gm/dL (5.7-8.2); Uric Acid 5.6 mg/dL (3.1-7.8); eGFR > 60 See Note
[2024-12-15 13:49] LABS: Fibrinogen 788 mg/dL (175-375)
--- NOTE | 2024-12-15 14:26 | ESOP_ITS ---
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 The patient was brought to the operating room and identified with two patient identifiers. She was placed in the supine position, and spinal anesthesia was administered. After confirming adequate anesthesia, th e abdomen and perineum were prepped and draped in the usual sterile fashion. A Aparicio catheter was inserted for continuous bladder drainage. A low transverse (Pfannenstiel) skin incision was made using a scalpel and carried through subcutaneous tissue to the rectus fascia. The previous scar was identified and excised in its entirety. The fascia was incised transversely and dissected off the rectus muscles both superiorly and inferiorly. The rectus bellies were in the midline, and the peritoneum was entered bluntly with the surgeon?s finger. The peritoneal opening was extended to allow adequate exposure. An Javier O-ring retractor was placed for optimal visualization. Upon entering the abdominal cavity, extensive adhesions were noted between the uterus, omentum, and surrounding peritoneal structures. These were carefully lysed using sharp and blunt dissection. Significant oozing was noted from the adhesiolysis sites, which required meticulous hemostasis with electrocautery and irrigation. The lower uterine segment was palpated, and the bladder flap was reflected inferiorly. A low transverse uterine incision (Hansa Mac) was made with a scalpel and extended bluntly. The amniotic membranes were ruptured, and clear fluid was released. The fetus was in vertex presentation. A Mityvac vacuum device was applied to the head. Vacuum-assisted delivery was accomplished without any pop-offs. A single loop of nuchal cord was noted and reduced. The shoulders and body were delivered smoothly with gentle fundal pressure. The umbilical cord was doubly clamped and cut, and the infant was handed to the awaiting team. Cord gases were obtained. The placenta was delivered with gentle traction on the cord. The uterine cavity was cleared of membranes and clots. The hysterotomy angles were secured with Allis clamps. Persistent bleeding was noted from the left uterine artery. Hemostasis was achieved with placement of compression sutures using 0 Vicryl. The uterine incision was closed in two layers using #1 Monocryl: the first layer was a running locked suture to approximate the myometrium, and the second layer imbricated the serosa and myometrium. Hemostasis was confirmed. The Javier retractor was removed. Peritoneal edges and rectus muscles were reapproximated. Rectus fascia was closed with running 0 Vicryl. The subcutaneous tissue was irrigated with warm saline, and bleeding points were cauterized using Bovie electrocautery. Subcutaneous tissue was approximated with 3-0 Vicryl. The skin was closed using INSORB absorbable ghassan. A sterile dressing was applied. The patient was cleaned, undraped, and transferred to the recovery room in stable and awake condition. She tolerated the procedure well. All counts were correct ?2. Estimated blood loss (ml): 800 Complications: none Surgical staff Operation Date: 12/15/24 12:45 Case Staff Assisting Surgeon: Chaka Walters CRUSHER ASSEMBLER: Ralph Villarreal Diagnosis Discharge Diagnosis (1) Rh negative status during : Status: Acute (2) Gestational hypertension: Status: Acute (3) Type 2 diabetes mellitus affecting in third trimester, antepartum: Status: Acute (4) Maternal care for low transverse scar from previous delivery: Status: Acute (5) Supervision of high risk , unspecified, third trimester: Status: Acute Problem List Completed Was Problem List Reviewed/Reconciled?: Yes
--- NOTE | 2024-12-15 14:27 | PD.LDDELS ---
Data (Blum) Data Hx Section: Yes Reason for Primary Section: repeat c/s Delivery Data (Blum) Delivery Data Delivered by: Chaka Walters
--- NOTE | 2024-12-15 16:50 | PC.NURSE ---
Dr. Walters notified of patients systolic BP reanging from 148-158, with recent BP of 158/73, orders procardia 1mg one time to be given now and to remain on scheduled labetalol as ordered.
[2024-12-15] MEDS: NIFEdipine 10 MG CAPSULE PO (16:55)
[2024-12-15] MEDS: INSULIN LISPRO (AdmeLOG) 1 UNIT/0.01 ML UNIT SC (17:30)
[2024-12-15] MEDS: OXYTOCIN in NS 20 units 20 UNIT/1,000 ML BAG 125 UNIT IV (17:34)
[2024-12-15] MEDS: INSULIN GLARGINE (Lantus) 5 UNIT/0.05 ML (PER 5 UNITS) 10 UNIT SC (21:06)
[2024-12-15] MEDS: ACETAMINOPHEN 325 MG TABLET 650 MG PO (21:26)
[2024-12-16] VITALS (10 sets, daily range): BP systolic 99–141; BP diastolic 58–94; PULSE 85–98; RESP 16–18; TEMP 36.6–36.7; O2SAT 96–99; BMI 49.1
[2024-12-16] MEDS: KETOROLAC INJ 30 MG/ML VIAL IVP (01:50)
[2024-12-16 06:19] LABS: Basophils % (Auto) 0 % (0-2.5); Eosinophils % (Auto) 0 % (0-10); Hematocrit 25.2 % (36.0-46.0); Immature Granulocytes % (Auto) 1 % (0-0); Immature Granulocytes Auto 0.13 Thou/mm3 (0.00-0.00); Lymphocytes # (Auto) 3.7 Thou/mm3 (1.0-4.8); Lymphocytes % (Auto) 21 % (10-50); Mean Corpuscular HGB Conc 31.7 g/dl (31.0-37.0); Mean Corpuscular Hemoglobin 23.5 pg (25.0-35.0); Mean Corpuscular Volume 74 fL (80-100); Monocytes # (Auto) 1.1 Thou/mm3 (0.0-0.8); Monocytes % (Auto) 6 % (0-12); Neutrophils # (Auto) 12.7 Thou/mm3 (1.8-7.7); Neutrophils % (Auto) 72 % (37-80); Nucleated Red Blood Cell % 0 /100 WBC (0); Platelet Count 337 Thou/mm3 (140-440); RDW Standard Deviation 43.9 fL (36.4-46.3); Red Blood Count 3.41 Miln/mm3 (4.00-5.20); White Blood Count 17.6 Thou/mm3 (3.6-11.0)
[2024-12-16] MEDS: DOCUSATE SOD 100 MG CAPSULE PO (08:49)
--- NOTE | 2024-12-16 10:02 | ESPR_ITS ---
RE: BEN SIMMONS : 1995 DATE OF SERVICE: 12/16/2024 SUBJECTIVE: Postoperative day #1, the patient denies any problem or complaint. She is voiding. She is ambulating. She is tolerating a regular diet. She is passing flatus. She denies any excessive vaginal bleeding. She denies any dizziness or lightheadedness. She denies any chest pain, palpitations, shortness of breath, or lower extremity pain. OBJECTIVE: Vital Signs: Blood pressure 121/79, heart rate 88, respirations 17, temperature 98.6. Lungs: Clear to auscultation bilaterally. Heart: Regular rate and rhythm. Abdomen: Dressing is dry and intact. Fundus is firm, nondistended. Extremities: Nontender. LABORATORY DATA: Hemoglobin pre-delivery 10.1 g/dL, post-delivery 8.0 g/dL. ASSESSMENT: 1. Postop day #1 status post delivery. 2. Chronic hypertension, on labetalol with stable blood pressures. 3. Gestational diabetes mellitus, class B diabetes mellitus. PLAN: Continue Lantus 10 units every p.m. and cover with sliding scale as needed. Continue ADA diet. Remove dressing. Encourage ambulation. Discontinue IV. Possible discharge home tomorrow. DT: 08:06:29 TT: 10:00:00 Ref: [id number] - TID: [id number]
[2024-12-16] MEDS: HYDROcodone/APAP 5/325 TABLET 1 TAB PO ×2 (14:56→19:47)
[2024-12-16] MEDS: LABETALOL 100 MG TABLET 200 MG PO (21:13)
[2024-12-16] MEDS: INSULIN GLARGINE (Lantus) 5 UNIT/0.05 ML (PER 5 UNITS) 10 UNIT SC (21:16)
[2024-12-17] MEDS: SIMETHICONE 80 MG CHEW PO (00:31)
[2024-12-17] MEDS: HYDROcodone/APAP 5/325 TABLET 1 TAB PO (00:31)
[2024-12-17 03:31] VITALS: BP 144/87; PULSE 92; RESP 20; TEMP 36.6; O2SAT 97
[2024-12-17 07:05] VITALS: BP 123/76; PULSE 94; RESP 20; TEMP 36.8; O2SAT 98
[2024-12-17] MEDS: IBUPROFEN TAB 400 MG TABLET 800 MG PO (07:06)
[2024-12-17] MEDS: Milk Of Magnesia Susp 30 ML UDC PO (07:14)
[2024-12-17 08:11] VITALS: BP 123/76; PULSE 94
[2024-12-17] MEDS: DOCUSATE SOD 100 MG CAPSULE PO (08:11)
[2024-12-17] MEDS: LABETALOL 100 MG TABLET 200 MG PO (08:11)
--- NOTE | 2024-12-17 09:06 | PD.LDPPPRG ---
Subjective Subjective Interval history: The patient is a 29-year-old -0-0-2 status post repeat by Dr. Walters 12/15/2024. She sees Dr. Walters in the office. It was a difficult and the patient had a lot of adhesions. The baby was also low in the canal. This morning, the patient is resting comfortably sitting at the side of the bed holding the baby. She denies heavy bleeding or fevers. She is bottlefeeding. She would like to go home. Her is asleep in the chair at the side of the bed. Exam Vital Signs Temp Pulse Resp BP Pulse Ox O2 Del Method 98.2 F 94 20 123/76 98 Room Air 12/17/24 07:05 12/17/24 08:11 12/17/24 07:05 12/17/24 08:11 12/17/24 07:05 12/17/24 07:05 Narrative Exam Patient is alert and oriented x 3 in no apparent distress. Fundus is firm. Abdomen is quite obese. Incision is clean dry and intact. Extremities show 1+ pitting edema of ankles. Objective Labs 12/16/24 04:37 12/15/24 12:50 Assessment & Plan Problem List (1) Rh negative status during : Status: Acute Assessment and plan: RhoGAM workup completed (2) Gestational hypertension: Status: Acute Assessment and plan: Home on blood pressure medication (3) Type 2 diabetes mellitus affecting in third trimester, antepartum: Status: Acute (4) Maternal care for low transverse scar from previous delivery: Status: Acute Assessment and plan: Discharge instructions given. Pain meds given. Wound care discussed in detail. Patient to keep incision clean and very dry.. She is to place foot powder or jock itch powder on the incision twice a day and keep a facecloth or some type of cloth on her incision under her pannus to keep it from getting sweaty and developing a yeast cellulitis (5) Supervision of high risk , unspecified, third trimester: Status: Acute (6) Delivery by section of full-term infant: Status: Acute Assessment and plan: Discharge instructions given (7) Morbid obesity: Status: Acute Assessment and plan: Lovenox Time Spent With Patient Time: Total time spent is greater than 50% in coordination of care (as documented) at patient's floor/unit and/or counseling patient: Time with patient: less than 15 minutes
--- NOTE | 2024-12-17 09:12 | ESDS_ITS ---
DS: Providers Provider Date of admission: 12/15/24 09:58 Primary care physician: Pia Hoyos PA-C Admitting Provider: Chaka Walters MD Attending Provider on Admission: Charles Jones MD Consults: 12/15/24 12:30 Referral Registered Dietitian Routine Comment: 12/15/24 14:26 Referral Routine Comment: Attending Provider on DC: Cecy Fajardo MD ([facility]) Discharging Provider: Cecy Fajardo MD ([facility]) DS: Diagnosis Problem List Completed Was Problem List Reviewed/Reconciled?: Yes Summary/Hosp Course Brief History: Judi Dempsey is a 29-year-old at 38 weeks and 4 days gestation who presents for a scheduled repeat low-transverse caesarean section. Her estimated due date is January 01, 2025. The patient has multiple complicating factors in this , including Rh-negative status, gestational hypertension, type 2 diabetes, and a history of previous low-transverse caesarean section. The patient denies any contractions, leakage of fluid, or vaginal bleeding. She transferred care to the current provider from [facility] in her early 3rd trimester, at which time she had poor glycemic control. Since then, her diabetes has been managed using a combination of metformin, diet control, and additional interventions in collaboration with her maternal- medicine doctor. Ms. Dempsey has been adherent to her prescribed treatment regimens, which have resulted in improved glycemic control since transferring care. She has not reported any acute complications or new symptoms related to her or underlying conditions. Medications and Supplements - Metformin - Used for glycemic control - Lovenox - For DVT prophylaxis post-operatively Review of Systems Cardiovascular: Negative for contractions. Genitourinary: Negative for leakage of fluid, vaginal bleeding. Peripartum Data Procedures: Procedures Operation Date: 12/15/24 12:45 Actual Procedure Side Surgeon p in OB Not Applicable Chaka Walters MD Time Spent with Patient Time attestation: Total time spent providing and/or coordinating discharge services: Exam Vital Signs Temp Pulse Resp BP Pulse Ox O2 Del Method 98.2 F 94 20 123/76 98 Room Air 12/17/24 07:05 12/17/24 08:11 12/17/24 07:05 12/17/24 08:11 12/17/24 07:05 12/17/24 07:05 Discharge Plan Plan Patient Disposition: HOME (Self Care) Patient condition on transfer: Stable Prescriptions/Referrals Prescriptions/Med Rec: New hydrocodone-acetaminophen 5-325 mg Tablet 1 tab PO Q6HR MDD 4 PRN (Reason: Patient rated pain 9 to 10) 7 Days Qty: 28 0RF docusate sodium 100 mg Capsule 100 mg PO QDAY 30 Days Qty: 30 0RF ibuprofen 400 mg Tablet 800 mg PO Q8HR PRN (Reason: Pain Scale 4-6 (Moderate) 10 Days Qty: 30 0RF labetalol 100 mg Tablet 200 mg PO BID 30 Days Qty: 120 1RF insulin glargine [Lantus Solostar U-100 Insulin] 100 unit/mL (3 mL) insulin pen 10 unit subcut QPM 30 Days Qty: 3 1RF (DME) pen needle, diabetic [Comfort EZ Pen Gorham] 29 gauge x 1/2 needle See Rx Instructions .Route Qty: 100 0RF Rx Instructions: As directed once a day at night enoxaparin [Lovenox] 40 mg/0.4 mL syringe 40 mg subcut Q24H Qty: 4 4RF Discontinued labetalol 200 mg tablet 400 mg PO BID 30 Days Qty: 120 2RF insulin glargine [Lantus U-100 Insulin] 100 unit/mL solution 20 unit subcut QPM 30 Days Qty: 6 4RF aspirin 81 mg tablet,delayed release (DR/EC) 81 mg PO QDAY 60 Days Qty: 60 2RF ketoconazole 2 % shampoo 1 applic topical Q14D 30 Days Qty: 120 1RF No Action (DME) pen needle, diabetic [Comfort EZ Pen Gorham] 32 gauge x 1/4 needle See Rx Instructions .Route Qty: 100 4RF Rx Instructions: As directed omeprazole 20 mg capsule,delayed release(DR/EC) 20 mg PO QDAY 90 Days Qty: 90 2RF Referrals: Pia Hoyos PA-C [Primary Care Provider] - Chaka Walters MD [Physician] - Patient/Caregiver Discharge Instructions Meds to Beds: Yes Discharge Activity: activity as tolerated Other Discharge Activity Instructions:: No heavy lifting, intercourse, tampons, douching, bathtubs, or swimming pools x 6 weeks. Other Discharge Diet Instructions: Diabetic diet as tolerated Education Materials: Diabetes, If You Are Rh Negative, Understanding the Pain Response, Medicine for Pain, C Section Dc, Taking Opioid Medicines, Managing Post-Op Pain at Home, Gestational Hypertension Print Language: Northern Irish Activity Restrictions/Additional Instructions: Call for heavy vaginal bleeding, fevers 101 ?F or higher, erythema around her incision. Patient to ambulate and take her pain meds. Patient to use her Lovenox for DVT prevention. Patient to wash her wound with soap and water once a day, dry under her pannus very well. Patient should place jock itch powder or foot powder on the incision twice a day and keep some type of cloth to absorb sweat between the layers of her pannus and her wound to prevent a yeast cellulitis. Dr. Walters will see her back in the clinic in 1 week. Stand Alone Forms: Reshma Award Info., Patient Portal Info Letter, DC from Surgery Vaccines Vaccines Given During Stay: Rhogam Discharge Order Discharge Orders: Discharge (Routine); Ordered 12/17/24 Ordered By: Cecy Fajardo ([facility]) Planned Discharge Date 12/17/24
== END 2024-12-17 11:36 | disposition home or self-care (01) | DRG 540 ==
LOC: S4SX 10:34 → S4NX 12:57
PROVIDERS: Admitting Provider Obstetrics & Gynecology; PCP Physician Assistant; Referring Provider Obstetrics & Gynecology; Visit Provider Specialist
PROC: 10D00Z1 Extraction of Products of Conception, Low, Open Approach (ICD-10-PCS; CPT 59514; principal; 2024-12-15 12:30)
DX: O34.211 Maternal care for low transverse scar from previous cesarean delivery (principal); Z37.0 Single live birth; Z3A.38 38 weeks gestation of pregnancy; O26.893 Other specified pregnancy related conditions, third trimester; Z67.41 Type O blood, Rh negative; O24.12 Pre-existing type 2 diabetes mellitus, in childbirth; O13.4 Gestational [pregnancy-induced] hypertension without significant proteinuria, complicating childbirth; O69.81X0 Labor and delivery complicated by cord around neck, without compression, not applicable or unspecified; Z3A.37 37 weeks gestation of pregnancy; O99.214 Obesity complicating childbirth; E66.01 Morbid (severe) obesity due to excess calories; O99.72 Diseases of the skin and subcutaneous tissue complicating childbirth; L03.90 Cellulitis, unspecified; B35.6 Tinea cruris; K66.0 Peritoneal adhesions (postprocedural) (postinfection)
CPT/HCPCS: 36415; 59409; 80053; 83615; 84550; 85025; 85384; 85461; 85610; 85730; 86780; 86850; 86900; 86901; 86923; 94762; J0360; J0689; J1100; J1200; J1815; J1885; J2250; J2274; J2371; J2405; J2590; J2704; J2790; J3490; A9270; J1920; J2270

== ENCOUNTER 2024-12-27 08:36 | Outpatient (AMB) | payer MEDICAID, SELFPAY ==
[2024-12-27 08:57] VITALS: BP 151/89; PULSE 81; RESP 18; TEMP 36.2; O2SAT 97
--- NOTE | 2024-12-27 08:57 | AMB.GYNCLNOT ---
Vital Signs 12/27/24 08:57 Weight 127.176 kg Weight Measurement Method Standing Scale BP 151/89 H Blood Pressure Source Automatic Cuff Blood Pressure Location Left Upper Arm Position Sitting Respiration 18 Pulse 81 Pulse Source Monitor Temp 97.2 F Temp Source Oral Pulse Oximetry (%) 97 Oxygen Delivery Method Room Air Allergies/Home Meds Allergies & Medications Allergies No Known Allergies Allergy (Verified 01/03/25 10:06) Medication Reconciliation nifedipine 60 mg tablet,extended release 60 mg PO QDAY 30 days #30 tabs 01/03/25 [Rx] Intake Visit Data Collection New Patient or Established: Established Patient (seen at [facility] within 3 years) Reason for Visit:: Postoperative follow-up for recent surgery, slightly elevated blood pressure Seen by Clinical Staff ONLY (RN/MA): No Nursery Worker Required: No Do You Feel Safe at Home: Yes Authorities Contacted: N/A PCP or OBGYN visit in last 3 months: Yes Date of Last PCP or OBGYN visit: 12/17/24 Hx Now: No Are you currently on any form of Control: No Pain Present Currently: No Pain Scale Used: Gomez-Vinson/Numerical Pain scale:: 0 Smoking Status Smoking Status: Never 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 Menstrual regularity: regular Flow: normal Monthly: Yes Currently sexually active: Yes 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: Past Medical History Past Medical History: No Hx Neurological Disorders, No Hx Hypothyroidism, No Hx Hyperthyroidism, No Hx Breast Cancer, No Hx Cardiac Disorders, Yes Hx Hypertension, No Hx Cancer, No Hx Blood Disorders, No Hx Anemia, No Hx Gastrointestinal Disorders, No Hx Renal Disease, Yes Hx Diabetes Mellitus Type 1, Yes Hx Diabetes Mellitus Type 2, No Hx Tubal Ligation, No Hx Hysterectomy, No Psychiatric Problems and No Hx Polycystic Ovarian Syndrome Questionnaires Covid-19 Vaccine Questionnaire Has patient been vacinated for Covid-19 Have you been vacinated for Covid-19: Yes PHQ-9 PHQ-2 Over the last 2 weeks, how often have you been bothered by any of the following problems? 1. Little interest or pleasure in doing things: not at all 2. Feeling down, depressed, or hopeless: not at all Total score: 0 PHQ-9 3. Trouble falling or staying asleep, or sleeping too much: Not at all 4. Feeling tired or having little energy: Not at all 5. Poor appetite or overeating: Not at all 6. Feeling bad about yourself - or that you are a failure or have let yourself or your family down: Not at all 7. Trouble concentrating on things, such as reading the newspaper or watching television: Not at all 8. Moving or speaking so slowly that other people could have noticed? - Or the opposite - being so fidgety or restless that you have been moving around a lot more than usual: not at all 9. Thoughts that you would be better off or of hurting yourself in some way: Not at all Total score: 0 If you checked off any problems, how difficult have these problems made it for you to do your work, take care of things at home, or get along with other people?: not difficult at all Source: Developed by Drs. Damian Masters, Jessie Gomez, Jonathan Tapia and colleagues, with an educational carissa from [employer]. Depression screen completed yes Social History Living Situation History Marital Status: Single Lives With: Family Housing: House Tobacco History Smoking Status: Never smoker Second Hand Smoke Exposure: No Alcohol History Alcohol Intake: Never Alcohol Intake Frequency: holidays/special occasions only Substance Use History Substance Use: no Domestic Abuse History Do You Feel Safe at Home: Yes History of Present Illness HPI Narrative Judi Dempsey presents for a postoperative follow-up visit approximately one week after undergoing a surgical procedure on December 15. The patient reports overall good recovery and is surprised by her ability to move well after the surgery, especially compared to her previous experience which was complicated by scar tissue. The patient mentions that her blood pressure was slightly elevated at a recent check, which she was instructed to report. She has been caring for her , who is doing well and is bottle-fed. The patient has established care with a central office inspector for the baby, using the same provider as for her older child. Regarding her surgical site, the patient reports applying baby powder to the incision area as suggested by another physician. She denies any significant bleeding from the surgical site. The patient continues to take vitamins as previously prescribed. Medications and Supplements - vitamins - Patient instructed to continue taking until supply runs out Review of Systems Review of Systems Systems Reviewed: All systems reviewed, normal except as documented Exam Narrative Physical exam: Abdomen: Incision site examined. Healing well without signs of infection. No powder or other substances present on the incision. General General Appearance: alert, in no apparent distress and healthy appearing Head Head exam: atraumatic Neck Neck exam: Present normal inspection and trachea midline Chest Chest inspection: Present normal inspection and symmetric chest wall rise External exam: Present normal external exam; Absent tenderness Neuro Neurological exam: Present oriented X3 Psych Psychiatric exam: Present normal affect and normal mood Office Procedures [facility] Clinic LOC & Office Proc's Nursing/Assessment Patient Status: Established Patient [facility] Nursing Assessment: Medication Reconciliation, Update PMH in EMR and Vital Signs OB Clinic Coordination of Care: Complex Care and Chronic Disease 1-5, Consent,records obtained, informed consent, Education Simp Pt/Fam, Lab and Imaging orders and Staff clarify orders Established Patient Charge Established Patient Point Assignment: 100 Established Patient Point Charge: EP Level 3 (80-115) Post Follow-up Visit Post Follow up Visit: Yes Assessment & Plan Diagnosis / Problem List (1) Morbid obesity: Status: Acute (2) Delivery by section of full-term infant: Status: Acute (3) Gestational [-induced] hypertension without significant proteinuria, third trimester: Status: Acute (4) Type 2 diabetes mellitus without complications: Status: Acute Plan Judi Dempsey, patient status post section on December 15, 2024, presenting for follow-up visit with slightly elevated blood pressure. status post section Assessment: Patient is approximately 12 days status post section performed on December 15, 2024. The incision site is healing well with no signs of infection or complications. Patient reports good mobility and recovery compared to her previous section, which was noted to be more difficult due to scar tissue. Plan: - Continue cleaning incision site with soap and water, allowing it to air dry - Discontinue use of baby powder on incision site - Continue vitamins until supply is exhausted - Follow-up appointment in 1 month for check Elevated blood pressure Assessment: Patient's blood pressure was noted to be slightly elevated during this visit. However, given the recent postoperative status and potential for pain-related elevation, immediate intervention is not warranted at this time. Plan: - Blood pressure check in 1 week - If blood pressure remains elevated at follow-up, consider initiating treatment
== END 2024-12-27 09:04 | disposition home or self-care (01) ==
LOC: HODSOBC 08:36
PROVIDERS: PCP Physician Assistant; Referring Provider Physician Assistant; Supervising Provider Obstetrics & Gynecology; Visit Provider Obstetrics & Gynecology
DX: Z39.2 Encounter for routine postpartum follow-up (principal); O13.5 Gestational [pregnancy-induced] hypertension without significant proteinuria, complicating the puerperium; O24.13 Pre-existing type 2 diabetes mellitus, in the puerperium; O99.215 Obesity complicating the puerperium; E66.01 Morbid (severe) obesity due to excess calories
CPT/HCPCS: 99213; G0463

== ENCOUNTER 2024-12-28 22:28 | Emergency (ER) | payer MEDICAID, SELFPAY ==
[2024-12-28 22:28] VITALS: BMI 45.1
[2024-12-28 22:53] VITALS: BP 167/107; PULSE 74; RESP 18; TEMP 37.1; O2SAT 100
--- NOTE | 2024-12-28 22:54 | PD.EDHA ---
ED Headache RME/HPI General Chief Complaint: Headache Stated Complaint: HEADACHE Time Seen by Provider: 12/28/24 22:58 Arrival date/time: 12/28/24 22:28 RME / HPI RME / HPI Narrative: This section includes all my notes and documentations, including HPI, PE, and ED course. Eamon Dominguez MD HPI: 29yo female with a history of HTN presents to the ED for a chief complaint of a headache. Patient states she recently had her daughter 2 weeks ago. Patient states she's had a headache for the last few days, reporting it got significantly worse today. No radiation or migration. 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 Patient denies any chest pain, cough, congestion, fever, chills, N/V, abdominal pain, BLE swelling or any other associated symptoms. No other complaints reported. ROS: All negative except as documented in HPI. Physical Exam: General: Alert and oriented. No acute distress when remaining still. Eyes: Conjunctivae and lids clear. PERRL. EOMI. ENT: No nasal congestion. Neck: Supple. Heart: RRR. Lungs: No respiratory distress. Good air movement. No rhonchi, wheezing, rales. Abdomen: Soft and nontender. Normal bowel sounds. No distension. No rebound or guarding. Back: No CVA tenderness. Legs: No edema. Skin: Warm and dry. Neuro: Alert and oriented X 3. Cranial nerves II through XII grossly normal. No peripheral motor deficits. I reviewed all diagnostic test results. My review of the CT head report is unremarkable. Blood tests and urine tests except 1+ protein in urine. At this point, diagnoses include severe headache. Treatment here included Clonidine and Tylenol with Codeine. I discussed the case with Dr. Fajardo.? About the presentation and exam and diagnostics and treatments here.? And possible need of further care in the hospital.? Recommended outpatient follow-up. When I looked for the patient to check on her, I was told she eloped. Eamon Dominguez MD Related Data Previous Rx's ?Medication ?Instructions ?Recorded labetalol 100 mg tablet 200 mg (2 x 100 mg) PO BID 30 days 12/16/24 #120 tabs Allergies Allergy/AdvReac Type Severity Reaction Status Date / Time No Known Allergies Allergy Verified 12/28/24 22:28 Review of Systems Review of Systems Systems Reviewed: All systems reviewed, normal except as documented Past Medical History Past Medical History NEUROLOGIC: Negative Neurological Disorders, Cerebrovascular Accident, Transient Ischemic Attacks (TIA), Dementia, Alzheimer's Disease, Parkinson's Disease, Brain Tumor, Meningitis, Seizures, Epilepsy, Multiple Sclerosis, Cerebral Palsy, Amyotrophic Lateral Sclerosis (ALS/Kaitlin Gehrig's), Guillain-Dundas Syndrome, Spina Bifida, Paralysis, Peripheral Neuropathy, Steel's Palsy, Subdural Hematoma, Migraine, Head Trauma, Spinal Cord Injury or Traumatic Brain Injury CARDIAC: Positive Hypertension; Negative Cardiac Disorders, Myocardial Infarction, Cardiac Arrhythmia, Atrial Fibrillation, Angina, Heart Murmur, Coronary Artery Disease, Atherosclerotic Heart Disease, Peripheral Vascular Disease, Hypercholesterolemia, Aneurysm, Congestive Heart Failure, Congenital Heart Disease, Valvular Heart Disease, Rheumatic Fever, Cardiomyopathy, Edema, Pericarditis or Hypotension RESPIRATORY: Positive Asthma (as a child, no current inhaler use) and Smoking Exposure (FORMER); Negative Chronic Obstructive Pulmonary Disease (COPD), Bronchitis, Emphysema, Pneumonia, Pulmonary Fibrosis, Tuberculosis, Pulmonary Embolism, Pulmonary Edema, Sleep Apnea, CPAP Dependent, Respiratory Aspiration, Dyspnea, Orthopnea, Cough, Sputum Production, Wheezing, Chest Deformities, Smoking, Smoking Cessation Counseling, Tobacco Use, Clubbing, Exposure to Respiratory Irritants or Intubation GASTROINTESTINAL: Negative Gastrointestinal Disorders, Liver Cancer, Hepatitis, Cirrhosis, Pancreatic Cancer, Pancreatitis, Celiac Disease, Gall Bladder Disease, Gastrointestinal Bleed, Esophageal Varices, Russell's Esophagus, Colitis, Ulcerative Colitis, Diverticulitis, Diverticulosis, Ulcer, Colorectal Cancer, Irritable Bowel, Crohn's Disease, Obstructive Bowel, Hiatal Hernia, Hemorrhoids, Gastroesophageal Reflux Disease or Obesity GENITOURINARY: Negative Genitourinary Disorders, Renal Disease, Kidney Stones, Polycystic Kidney Disease, Neurogenic Bladder, Inguinal Hernia or Dialysis REPRODUCTIVE: Positive Previous Pregnancies; Negative Breast Cancer, Endometriosis, Fibroids, Genital Herpes, Gonorrhea, Pelvic Inflammatory Disease, Hx Polycystic Ovarian Syndrome, Syphilis or Uterine Prolapse MUSCULOSKELETAL: Negative Musculoskeletal Disorders, Muscular Dystrophy, Myasthenia Gravis, Marfan's Syndrome, Bone Cancer, Arthritis, Rheumatoid Arthritis, Osteoporosis, Degenerative Disk Disease, Gout, Scoliosis, Carpal Tunnel Syndrome, Fibromyalgia, Fractures, Degenerative Joint Disease, Osteomyelitis or Poliovirus ENT: Negative Cataracts, Glaucoma, Blind, Retinal Detachment, Macular Degeneration, Ear Infection, Deafness, Head Trauma or Eye Prosthesis ENDOCRINE: Positive Diabetes Mellitus Type 1 and Diabetes Mellitus Type 2; Negative Endocrine Disorders, Hypoglycemia, Mansfield's Syndrome, Harvey's Disease, Hyperthyroidism, Hypothyroidism, Thyroid Cancer, Parathyroid Disease, Pituitary Disease, Systemic Lupus Erythematosus, Syndrome of Inappropriate Antidiuretic Hormone (SIADH), Adrenal Disease or Graves' Disease HEMATOLOGIC: Negative Blood Disorders, Anemia, Leukemia, Hemophilia, Thalassemia, Sickle Cell Disease or Clotting Problems PSYCHO/SOCIAL: Negative Psychiatric Problems, Schizophrenia, Recreational Drug Use, Bipolar Disorder, Depression, Anxiety, Behavior Problems, Self-Mutilation, Attention Deficit Disorder, Attention Deficit Hyperactivity Disorder, Depression, Post Traumatic Stress Disorder or Eating Disorder OTHER HISTORY: Negative Autoimmune Disease, Down Syndrome, Autism, Developmental Delay, Cosmetic Surgery, Shingles, Falls, Blood Transfusions, Blood Transfusion Reaction, Anesthesia Reactions, Organ Transplant, Chemotherapy, Radiation Therapy, Hyperbaric Therapy, MRSA, VRSA, Vancomycin-Resistant Enterococci, Human Immunodeficiency Virus (HIV), Chicken Pox, Measles, Mumps, Rubella (Kinyarwanda Measles), Pertussis, Clostridium Difficile, Cancer, Breast Cancer, Cervical Cancer, Colorectal Cancer, Lung Cancer or Ovarian Cancer Family History FAMILY HISTORY: Positive Family Cardiac Disorders and Family Cancer; Negative Family Psychiatric Problems, Family Respiratory Disorders, Family Gastrointestinal Problems, Family Surgery or Family Anesthesia Reaction Surgical History SURGICAL: Positive Tonsillectomy, Abdominal Surgery and Section; Negative Cardiac Surgery, Open Heart Surgery, Coronary Artery Bypass Graft, Valve Replacement, Vascular Surgery, Coronary Stent, Cardiac Catheterization, Pacemaker, Angiogram, Auto Implanted Cardiovert Defib, Carotid Endarterectomy, Endocrine Surgery, Thyroidectomy, Ear Surgery, Tympanostomy Tube, Eye Surgery, Nose Surgery, Oral Surgery, Adenoidectomy, Cochlear Implant, Corneal Transplant, Throat Surgery, Tracheostomy, Gastric Bypass Surgery, Gastrostomy, Bowel Surgery, Nephrectomy, Joint Replacement, Amputation, Open Reduction Internal Fixation, Arthroscopy, Neurologic Surgery, Brain Shunt, Lumpectomy, Hysterectomy, Tubal Ligation or Organ Transplant Social History SMOKING STATUS: Never smoker SECOND HAND EXPOSURE: No SUBSTANCE USE: does not use ED Exam Narrative Physical exam: As noted in HPI. Course Quality Measures none Orders Category Date Time Status CT head/brain wo con Stat Exams 12/28/24 22:59 Taken CBC Stat Lab 12/28/24 23:12 Completed CMP [Comprehensive Metabolic Panel] Stat Lab 12/28/24 23:12 Completed Free T4 (Free Thyroxine) Stat Lab 12/28/24 23:12 Completed Magnesium Stat Lab 12/28/24 23:12 Completed TSH [Thyroid Stimulating Hormone] Stat Lab 12/28/24 23:12 Completed UA, C/S IF [Urinalysis, C/S if Indicated] Stat Lab 12/28/24 23:04 Completed Urine Culture Stat Lab 12/28/24 23:04 Received ACETAMINOPHEN w/COD 300-30 [Tylenol w/Cod #3] Med 12/28/24 22:58 Discontinued 2 tab PO X1 ONE cloNIDine HCL [Catapres] Med 12/28/24 22:58 Discontinued 0.3 mg PO X1 ONE Vital Signs Vital signs: Vital Signs Temperature 98.7 F 12/28/24 22:53 Pulse Rate 74 12/28/24 22:53 Respiratory Rate 18 12/28/24 22:53 Blood Pressure 167/107 H 12/28/24 22:53 Pulse Oximetry (%) 100 12/28/24 22:53 Oxygen Delivery Method Room Air 12/28/24 22:53 Headache MDM Narrative MDM Narrative:: Scribe Attestation: 12/28/24 - Kerry Sharma am scribing for and in the presence of Dr. Dominguez. Patient data External records reviewed:: [facility] previous records (Per chart review, patient was admitted here on 12/15/24 for a scheduled .) Clinical information provided by:: patient Social determinants that could affect healthcare access:: none Patient has the following chronic illnesses:: HTN How is presenting disease/condition affected by chronic disease/condition?: caused by Evaluation data The following diagnostics were reviewed and interpreted by me:: lab results and radiology exam(s) Lab and/or radiology exams considered but not ordered:: none Interpretation Summary: I reviewed all diagnostic test results. My review of the CT head report is unremarkable. Blood tests and urine tests unremarkable except 1+ protein in urine. Medications / Prescriptions Medications or Prescriptions considered but not ordered:: none Medication administrations:: Medication Administration History Discontinued Medications Acetaminophen/Codeine Phosphate (Acetaminophen W/Cod 300-30 Tablet) 2 tab PO X1 ONE Stop: 12/28/24 22:59 Last Admin: 12/28/24 23:20 Dose: Not Given Documented By: AC Non-Admin Reason: Patient Refused Clonidine (Clonidine Hcl 0.1 Mg Tablet) 0.3 mg PO X1 ONE Stop: 12/28/24 22:59 Last Admin: 12/28/24 23:20 Dose: 0.3 mg Documented By: LUCITA Clonidine, Tylenol with Codeine Consultations Consultation(s) initiated? (list below): Yes Consultation #1 (Physician, Specialty, Details): Discussed case with Dr. Fajardo from [employer] regarding consultation. Discussed patients ED course, exam findings, labs, and radiology results. About possible admission here. Recommends outpatient follow-up. Time: 00:59 Diagnosis Differential diagnosis headache: migraine, tension headache, subarachnoid hemorrhage, headache, sinusitis and other (Preeclampsia) Most likely diagnosis given after review of the tests above:: Headache of unclear etiology. Admission Indicated Admission indicated?: not indicated Explain why admission is indicated or not indicated:: Patient eloped. Admission Request Was there a request for admission?: No Disposition Plan Disposition Plan: other (specify) (Patient eloped.) Discharge Plan Plan Patient Disposition: Elopement Prescriptions/Referrals Prescriptions/Med Rec: No Action labetalol 100 mg Tablet 200 mg PO BID 30 Days Qty: 120 1RF Referrals: Pia Hoyos PA-C [Primary Care Provider] - In 1 week Problem List Clinical Impression: Headache Patient/Caregiver Discharge Instructions Print Language: Citizen Of [place]
--- NOTE | 2024-12-28 22:59 | XR_ITS ---
Examination: CT brain head without contrast. 2-D sagittal coronal reconstructions Date and time of exam:December 29, 2024 0007 hours INDICATIONS: Severe headaches 2 weeks CTDI: vol (mGy):56.2 DLP: (mGycm):1143 Technique: Multiple CT axial sections of the brain have been obtained, 5 mm slice thickness. Contrast has not been administered. 2-D sagittal, coronal reconstructions have been obtained Low dose protocols were performed. One or more of the following dose reduction techniques were used; automated exposure control, adjustment of the mA and/or KV according to patient size, use of iterative reconstruction technique. Findings: No significant ventricular enlargement. Intra-axial or extra-axial hemorrhage density is not seen. No mass effect or midline shift Basal cisterns are not remarkable. Fourth ventricle is midline. Cranial vault intact. Impression: Negative for acute hemorrhage, mass effect or midline shift
[2024-12-28 23:14] LABS: Collection Type, Urine Clean Catch
[2024-12-28 23:20] VITALS: BP 167/107; PULSE 76
[2024-12-28] MEDS: cloNIDine HCL 0.1 MG TABLET 0.3 MG PO (23:20)
[2024-12-28 23:23] LABS: Basophils % (Auto) 0 % (0-2.5); Eosinophils # (Auto) 0.4 Thou/mm3 (0.0-0.5); Eosinophils % (Auto) 3 % (0-10); Hematocrit 28.8 % (36.0-46.0); Hemoglobin 8.9 g/dL (12.0-16.0); Immature Granulocytes % (Auto) 0 % (0-0); Immature Granulocytes Auto 0.04 Thou/mm3 (0.00-0.00); Lymphocytes # (Auto) 4.2 Thou/mm3 (1.0-4.8); Lymphocytes % (Auto) 34 % (10-50); Mean Corpuscular HGB Conc 30.9 g/dl (31.0-37.0); Mean Corpuscular Hemoglobin 22.9 pg (25.0-35.0); Mean Corpuscular Volume 74 fL (80-100); Monocytes # (Auto) 0.6 Thou/mm3 (0.0-0.8); Monocytes % (Auto) 5 % (0-12); Neutrophils % (Auto) 57 % (37-80); Nucleated Red Blood Cell % 0 /100 WBC (0); Platelet Count 411 Thou/mm3 (140-440); RDW Standard Deviation 43.8 fL (36.4-46.3); Red Blood Count 3.88 Miln/mm3 (4.00-5.20); White Blood Count 12.3 Thou/mm3 (3.6-11.0)
[2024-12-28 23:39] LABS: Alanine Aminotransferase 11 U/L (10-49); Albumin, Serum 4.5 gm/dL (3.5-5.0); Albumin/Globulin Ratio 1.9 (1.2-2.2); Alkaline Phosphatase 86 U/L (46-116); Anion Gap 12 (7-16); Aspartate Amino Transferase 24 U/L (0-34); BUN/Creatinine Ratio 13 Ratio (12-20); Bilirubin,Total 0.2 mg/dL (0.3-1.2); Blood Urea Nitrogen 9 mg/dL (9-23); Calcium 8.7 mg/dL (8.3-10.6); Calcium (Corrected) 8.7 mg/dL (8.5-10.1); Carbon Dioxide 25.2 mMol/L (20.0-31.0); Chloride 106 mMol/L (98-107); Creatinine (Component) 0.7 mg/dL (0.6-1.3); Estimated Creatinine Clearance 163.2 mL/min (>60); Globulin 2.4 gm/dL (2.3-3.5); Glucose 101 mg/dL (74-106); Magnesium 1.8 mg/dL (1.6-2.6); Osmolality,Calculated 283 (275-295); Potassium 4.3 mMol/L (3.4-5.1); Sodium 143 mMol/L (136-145); Thyroid Stimulating Hormone 3.47 uIU/mL (0.55-4.78); Total Protein 6.9 gm/dL (5.7-8.2); eGFR > 60 See Note
[2024-12-28 23:49] LABS: Bacteria,Urine Rare; Bilirubin,Urine Negative (Negative); Blood,Urine 3+ (Negative); Clarity,Urine Turbid (Clear/Hazy); Glucose, Urine Negative (Negative); Ketones,Urine Negative (Negative); Leukocyte Esterase,Urine Positive (Negative); Nitrite,Urine Negative (Negative); Protein,Urine 1+ (Neg - Trace); RBC,Urine 42 /hpf (0-3); Specific Gravity,Urine 1.027 (1.001-1.035); Squamous Epithelial Cell,Urine 1 /hpf (0-5); Urobilinogen,Urine Negative mg/dL (0.0-1.0); WBC,Urine 55 /hpf (0-5)
[2024-12-28 23:52] LABS: Color,Urine Yellow (Lt Yel-Yel); Culture Indicated,Urine Yes
[2024-12-28 23:58] VITALS: BP 146/94
--- NOTE | 2024-12-29 00:55 | PRELIM_ITS ---
CT scan of the head without intravenous contrast (axial sections with sagittal and coronal reformats). December 29, 2024 0007 hours Clinical History: Severe headache Comparison: No prior study is available for comparison. Findings: No evidence of intracranial hemorrhage, mass effect or midline shift. The ventricles and CSF spaces are unremarkable. The calvarium is unremarkable. The mastoid air cells and the visualized paranasal sinuses are clear. Impression: No evidence of intracranial hemorrhage, mass effect or midline shift. Report Electronically Signed By: Valente Jerome 12/29/2024 12:54:52 AM [EST]
--- NOTE | 2024-12-29 01:03 | PC.NURSE ---
PT INFORMED ME THAT HE CAN WAIT NO MORE FOR CT RESULT. SHE FELLS BETTER, DR. JOHNSON AWARE.
== END 2024-12-29 01:05 | disposition left against medical advice (07) ==
LOC: SERX 12-29 00:09
PROVIDERS: Emergency Provider Emergency Medicine; PCP Physician Assistant
DX: R51.9 Headache, unspecified (principal); Z53.29 Procedure and treatment not carried out because of patient's decision for other reasons; I10 Essential (primary) hypertension
CPT/HCPCS: 36415; 70450; 80053; 81001; 83735; 84439; 84443; 85025; 87086; 99281; A9270

== ENCOUNTER 2025-01-03 09:57 | Outpatient (AMB) | payer MEDICAID, SELFPAY ==
[2025-01-03 10:05] VITALS: BP 131/83; PULSE 70; RESP 16; TEMP 36.6; O2SAT 96; BMI 45.0
--- NOTE | 2025-01-03 10:05 | AMBOBPPN_ITS ---
Vital Signs 01/03/25 10:05 Height 1.68 m Height Method Stated Weight 126.552 kg Weight Measurement Method Standing Scale BMI 45.0 BP 131/83 H Blood Pressure Source Automatic Cuff Blood Pressure Location Right Upper Arm Position Sitting Respiration 16 Pulse 70 Pulse Source Monitor Temp 97.8 F Temp Source Oral Pulse Oximetry (%) 96 Oxygen Delivery Method Room Air Allergies/Home Meds Allergies & Medications Allergies No Known Allergies Allergy (Verified 01/03/25 10:06) Medication Reconciliation nifedipine 60 mg tablet,extended release 60 mg PO QDAY 30 days #30 tabs 01/03/25 [Rx] Intake Visit Data Collection New Patient or Established: Established Patient (seen at 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: Past Medical History Past Medical History: No Hx Neurological Disorders, No Hx Hypothyroidism, No Hx Hyperthyroidism, No Hx Breast Cancer, No Hx Cardiac Disorders, Yes Hx Hypertension, No Hx Cancer, No Hx Blood Disorders, No Hx Anemia, No Hx Gastrointestinal Disorders, No Hx Renal Disease, Yes Hx Diabetes Mellitus Type 1, Yes Hx Diabetes Mellitus Type 2, No Hx Tubal Ligation, No Hx Hysterectomy, No Psychiatric Problems and No Hx Polycystic Ovarian Syndrome Questionnaires Covid-19 Vaccine Questionnaire Has patient been vacinated for Covid-19 Have you been vacinated for Covid-19: Yes Social History Living Situation History Lives With: Family Housing: House Tobacco History Smoking Status: Never smoker Second Hand Smoke Exposure: No Alcohol History Alcohol Intake: Never Alcohol Intake Frequency: holidays/special occasions only Substance Use History Substance Use: no Domestic Abuse History Do You Feel Safe at Home: Yes EPDS - PP Depression Screening [place] Depression Screen I have been able to laugh and see the funny side of things: (0) As much as I always could I have looked forward with enjoyment to things: (0) As much as I ever did I have blamed myself unnecessarily when things went wrong: (0) No, never I have been anxious or worried for no good reason: (0) No, not at all I have felt scared or panicky for no very good reason: (0) No, not at all Things have been getting on top of me: (0) No, I have been coping as well as ever I have been so unhappy that I have had difficulty sleeping: (0) No, not at all I have felt sad or miserable: (0) No, not at all I have been so unhappy that I have been crying: (0) No, never The thought of harming myself has occurred to me: (0) Never Total Score: EPDS Score: Referral is indicated for score of 9 or more, suicidal, or if provider believes patient is depressed regardless of score.: 0 EPDS completed yes Care OB Visit Log OB Flowsheet Initial Weight: Not Recorded Date -?-?-?-?-?-?-?-?-?-?-?-?- EGA Weight BP Alb Glu CTX Pres Fundal ht FHR Mov Dilation Station Effacement Hx Notes Visit Note 10/11/24 -?-?-?-?-?-?-?-?-?-?-?-?- 28w 2d 139.026 kg 124/81 30 145 active 10/25/24 -?-?-?-?-?-?-?-?-?-?-?-?- 30w 2d 139.423 kg 124/83 32 135 active 11/15/24 -?-?-?-?-?-?-?-?-?-?-?-?- 33w 2d 138.969 kg 128/78 145 active No CTX/LOF/VB. Reports good FM. No GROVES/VS, Epig/RUQ pain. Type 2 DM and gestational hypertension. Headache last week, attributed to hospital visits. BP good today. On metformin 1000 mg BID, aspirin, omeprazole, and ketoconazole shampoo (used 1?2x/week). Expressed concern about ketoconazole use in . Fasting sugars elevated (123?126 mg/dL). Attending 2x weekly NSTs and ultrasounds. FHR: 147 bpm (normal). Assessment & Plan: 33w2d with GDM and gestational hypertension. Mildly elevated fasting BGs on metformin alone. Adjust metformin to 1000 mg QD and add n ighttime insulin Provide insulin instructions and monitor fasting BG daily x 1 week Follow up in 1 week to review glucose lo g Refill aspirin and continue Start low-dose antihypertensive (conside r nifedipine or Limbitrol) Continue twice weekly NSTs and ultrasoun ds Limit ketoconazole shampoo to 1x/week Resolve referral issue with Dr. Moreno/Jelani Collins Discuss timing based on glycem ic control (36?38w) Reviewed signs of labor and care counseling 11/29/24 -?-?-?-?-?-?-?-?-?-?-?-?- 35w 2d 139.026 kg 123/83 150 active with chronic hypertension - Increase labetalol to 400 mg PO BID fo r better 24-hour blood pressure control - Continue current schedule of NSTs and ultrasounds on Mondays and - Monitor biophysical profile scor es and amniotic fluid levels - Continue blood glucose monitoring; not ed to be really good - Follow-up appointment scheduled in one week - Inform patient that [facility] is not av ailable at this hospital - Plan to use pre-neurodressing with adh esive for incision care post- section - Educate patient on benefits: seals a scott, prevents contamination, can be left in place for 2 weeks, allows showering - Inform patient that outcomes are com parable to [facility] - Schedule removal of dressing in office after 2 weeks post- operation 12/06/24 -?-?-?-?-?-?-?-?-?-?-?-?- 36w 2d 140.727 kg 134/85 145 active - section scheduled for December 15, 2024 at 12:30 PM - Patient to check in at 10:00 AM - NPO after midnight, including medica tions - Advised to hydrate well before midni ght - No further visits scheduled b efore section - Provided work note for maternity leave - Leave to start on Thursday (November) - Initial leave duration set for 2 mon ths from section date - Possibility of extension if needed REGINA Calculator Estimated Delivery Date Method Current WG Current Estimate 01/01/25 Ultrasound #1 40w 5d Other Estimates 12/13/24 LMP (Uncertain) 43w 3d HPI Interval History: Judi Dempsey presents for a blood pressure check 2 weeks following a . The patient's blood pressure remains elevated, with a current reading of 133/83. The patient reports a recent emergency room visit last week due to a throbbing headache that persisted for hours. At the ER, her blood pressure was recorded as 167/109. She was given three tablets of an unspecified medication as a one-time treatment, but was not provided with a prescription upon discharge. Ms. Dempsey is currently taking labetalol 400 mg twice daily (200 mg in the morning and 200 mg in the evening) for blood pressure control. However, this regimen does not appear to be effectively managing her hypertension. She has not taken her labetalol dose today. The patient reports that her baby is doing well. Medications and Supplements - Labetalol 200 mg by mouth twice daily - Patient was taking this but has been instructed to stop - Unspecified medication given in ER - 3 tablets given once for high blood pressure Review of Systems Cardiovascular: Negative for chest pain. Neurological: Positive for headache. Exam General General Appearance: alert, in no apparent distress and healthy appearing Head Head exam: atraumatic Neck Neck exam: Present normal inspection and trachea midline Chest Chest inspection: Present normal inspection and symmetric chest wall rise External exam: Present normal external exam; Absent tenderness Neuro Neurological exam: Present oriented X3 Psych Psychiatric exam: Present normal affect and normal mood Office Procedures OB Clinic LOC & Office Proc's Nursing/Assessment Patient Status: Established Patient OB Clinic Nursing Assessment: Medication Reconciliation, Update PMH in EMR and Vital Signs OB Clinic Coordination of Care: Complex Care and Chronic Disease 1-5, Consent,records obtained, informed consent, Education Simp Pt/Fam, Results/Orders obtained and Staff clarify orders Established Patient Charge Established Patient Point Assignment: 90 Established Patient Point Charge: EP Level 3 (80-115) Post Follow-up Visit Post Follow up Visit: Yes Assessment & Plan Diagnosis / Problem List (1) Delivery by section of full-term infant: Status: Acute (2) Gestational [-induced] hypertension without significant proteinuria, third trimester: Status: Acute Plan Judi Dempsey, 2 weeks after , presenting for blood pressure check with persistent hypertension and recent ER visit for severe headache. Hypertension Assessment: Patient presents with elevated blood pressure (133/83) at 2 weeks following delivery. She reports a recent ER visit due to severe, throbbing headache lasting hours, with recorded BP of 167/109. ER provided acute treatment with 3 tablets of an unspecified medication. Current antihypertensive regimen of labetalol 400 mg BID has been ineffective in controlling blood pressure. Patient is at risk for preeclampsia for up to 12 weeks post-delivery. Plan: - Discontinue labetalol 400 mg BID - Start Procardia XL (nifedipine extended-release) once daily with breakfast - Patient previously responded well to this medication during hospital stay - Continue Procardia XL for 3 months post-delivery (12 weeks total) - Follow-up appointment scheduled for full check in 1 month - Monitor blood pressure and symptoms of preeclampsia - Patient instructed to start new medication as soon as possible
== END 2025-01-03 10:26 | disposition home or self-care (01) ==
LOC: HODSOBC 09:57
PROVIDERS: PCP Obstetrics & Gynecology; Referring Provider Obstetrics & Gynecology; Supervising Provider Obstetrics & Gynecology; Visit Provider Obstetrics & Gynecology
DX: Z39.2 Encounter for routine postpartum follow-up (principal); O13.5 Gestational [pregnancy-induced] hypertension without significant proteinuria, complicating the puerperium
CPT/HCPCS: 59430; 99213; G0463

== ENCOUNTER 2025-01-31 15:00 | Outpatient (AMB) | payer MEDICAID, SELFPAY ==
[2025-01-31 15:55] VITALS: BP 150/90; PULSE 96; RESP 18; TEMP 36.2; O2SAT 98; BMI 44.1
--- NOTE | 2025-01-31 15:55 | AMBOBPPN_ITS ---
Vital Signs 01/31/25 15:55 Height 1.68 m Height Method Stated Weight 124.454 kg Weight Measurement Method Standing Scale BMI 44.1 BP 150/90 H Blood Pressure Source Automatic Cuff Blood Pressure Location Left Upper Arm Position Sitting Respiration 18 Pulse 96 Pulse Source Monitor Temp 97.2 F Temp Source Oral Pulse Oximetry (%) 98 Oxygen Delivery Method Room Air Allergies/Home Meds Allergies & Medications Allergies No Known Allergies Allergy (Verified 01/31/25 15:57) Medication Reconciliation nifedipine 60 mg tablet,extended release 60 mg PO QDAY 30 days #30 tabs 01/03/25 [Rx Confirmed 01/31/25] Intake Visit Data Collection New Patient or Established: Established Patient (seen at [facility] within 3 years) Reason for Visit:: Seen by Clinical Staff ONLY (RN/MA): No Horse Wrangler Required: No Do You Feel Safe at Home: Yes Authorities Contacted: N/A PCP or OBGYN visit in last 3 months: Yes Date of Last PCP or OBGYN visit: 01/03/25 Hx Now: No Are you currently on any form of Control: No Pain Present Currently: No Pain Scale Used: Gomez-Vinson/Numerical Pain scale:: 0 Smoking Status 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 Past Medical History: No Hx Neurological Disorders, No Hx Hypothyroidism, No Hx Hyperthyroidism, No Hx Breast Cancer, No Hx Cardiac Disorders, Yes Hx Hypertension, No Hx Cancer, No Hx Blood Disorders, No Hx Anemia, No Hx Gastrointestinal Disorders, No Hx Renal Disease, Yes Hx Diabetes Mellitus Type 1, Yes Hx Diabetes Mellitus Type 2, No Hx Tubal Ligation, No Hx Hysterectomy, No Psychiatric Problems and No Hx Polycystic Ovarian Syndrome Questionnaires Covid-19 Vaccine Questionnaire Has patient been vacinated for Covid-19 Have you been vacinated for Covid-19: Yes Social History Living Situation History Lives With: Family Housing: House Tobacco History Smoking Status: Never smoker Second Hand Smoke Exposure: No Alcohol History Alcohol Intake: Never Alcohol Intake Frequency: holidays/special occasions only Substance Use History Substance Use: no Domestic Abuse History Do You Feel Safe at Home: Yes EPDS - PP Depression Screening [place] Pospartum Depression Screen I have been able to laugh and see the funny side of things: (0) As much as I always could I have looked forward with enjoyment to things: (0) As much as I ever did I have blamed myself unnecessarily when things went wrong: (0) No, never I have been anxious or worried for no good reason: (0) No, not at all I have felt scared or panicky for no very good reason: (0) No, not at all Things have been getting on top of me: (0) No, I have been coping as well as ever I have been so unhappy that I have had difficulty sleeping: (0) No, not at all I have felt sad or miserable: (0) No, not at all I have been so unhappy that I have been crying: (0) No, never The thought of harming myself has occurred to me: (0) Never Total Score: EPDS Score: Referral is indicated for score of 9 or more, suicidal, or if provider believes patient is depressed regardless of score.: 0 EPDS completed yes Care OB Visit Log OB Flowsheet Initial Weight: Not Recorded Date -?-?-?-?-?-?-?-?-?-?-?-?- EGA Weight BP Alb Glu CTX Pres Fundal ht FHR Mov Dilation Station Effacement Hx Notes Visit Note 10/11/24 -?-?-?-?-?-?-?-?-?-?-?-?- 28w 2d 139.026 kg 124/81 30 145 active 10/25/24 -?-?-?-?-?-?-?-?-?-?-?-?- 30w 2d 139.423 kg 124/83 32 135 active 11/15/24 -?-?-?-?-?-?-?-?-?-?-?-?- 33w 2d 138.969 kg 128/78 145 active No CTX/LOF/VB. Reports good FM. No GROVES/VS, Epig/RUQ pain. Type 2 DM and gestational hypertension. Headache last week, attributed to hospital visits. BP good today. On metformin 1000 mg BID, aspirin, omeprazole, and ketoconazole shampoo (used 1?2x/week). Expressed concern about ketoconazole use in . Fasting sugars elevated (123?126 mg/dL). Attending 2x weekly NSTs and ultrasounds. FHR: 147 bpm (normal). Assessment & Plan: 33w2d with GDM and gestational hypertension. Mildly elevated fasting BGs on metformin alone. Adjust metformin to 1000 mg QD and add n ighttime insulin Provide insulin instructions and monitor fasting BG daily x 1 week Follow up in 1 week to review glucose lo g Refill aspirin and continue Start low-dose antihypertensive (conside r nifedipine or Limbitrol) Continue twice weekly NSTs and ultrasoun ds Limit ketoconazole shampoo to 1x/week Resolve referral issue with Dr. Moreno/Jelani Collins Discuss timing based on glycem ic control (36?38w) Reviewed signs of labor and care counseling 11/29/24 -?-?-?-?-?-?-?-?-?-?-?-?- 35w 2d 139.026 kg 123/83 150 active with chronic hypertension - Increase labetalol to 400 mg PO BID fo r better 24-hour blood pressure control - Continue current schedule of NSTs and ultrasounds on Mondays and - Monitor biophysical profile scor es and amniotic fluid levels - Continue blood glucose monitoring; not ed to be really good - Follow-up appointment scheduled in one week - Inform patient that [facility] is not av ailable at this hospital - Plan to use pre-neurodressing with adh esive for incision care post- section - Educate patient on benefits: seals a scott, prevents contamination, can be left in place for 2 weeks, allows showering - Inform patient that outcomes are com parable to [facility] - Schedule removal of dressing in office after 2 weeks post- operation 12/06/24 -?-?-?-?-?-?-?-?-?-?-?-?- 36w 2d 140.727 kg 134/85 145 active - section scheduled for December 15, 2024 at 12:30 PM - Patient to check in at 10:00 AM - NPO after midnight, including medica tions - Advised to hydrate well before midni ght - No further visits scheduled b efore section - Provided work note for maternity leave - Leave to start on Thursday (November) - Initial leave duration set for 2 mon ths from section date - Possibility of extension if needed REGINA Calculator Estimated Delivery Date Method Current WG Current Estimate 01/01/25 Ultrasound #1 44w 3d Other Estimates 12/13/24 LMP (Uncertain) 47w 1d HPI Interval History: Patient reports medication non-adherence, stating she has not taken her prescribed nifedipine (60 mg extended-release) today and has skipped a few doses due to being busy. Despite elevated blood pressure, she reports feeling well and was surprised by the high reading. She has not experienced any symptoms typically associated with high blood pressure. Patient mentions her baby is doing well. Regarding glucose management, she used a tracker provided by the hospital for a while, but her insurance no longer covers it. She has lost some weight and is scheduled to receive blood work r esults from her primary care physician tomorrow to guide her ongoing management. She expresses interest in resuming control. She has already consulted with her primary care provider, who has prescribed the same oral contraceptive she used prior to her . She is awaiting a required test before starting the medication. She is a female patient with a history of gestational hypertension, presenting for a visit following a repeat section on December 15, 2024. She has established care with a community recreation coordinator for her baby and is following up with her primary care physician for ongoing management of her glucose levels and blood pressure. Her obstetric history includes G2 T2 L2, with her most recent delivery via repeat section on December 15, 2024. She has a history of gestational hypertension during . She has been cleared to resume exercise, including swimming, hiking, biking, and running. 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 Exam General General Appearance: alert, in no apparent distress and healthy appearing Head Head exam: atraumatic Neck Neck exam: Present normal inspection and trachea midline Chest Chest inspection: Present normal inspection and symmetric chest wall rise External exam: Present normal external exam; Absent tenderness Neuro Neurological exam: Present oriented X3 Psych Psychiatric exam: Present normal affect and normal mood Office Procedures OB Clinic LOC & Office Proc's Nursing/Assessment Patient Status: Established Patient OB Clinic Nursing Assessment: Medication Reconciliation, Update PMH in EMR and Vital Signs OB Clinic Coordination of Care: Education Complex Pt/Fam, Consent,records obtained, informed consent, Lab and Imaging orders and Staff clarify orders Established Patient Charge Established Patient Point Assignment: 80 Post Follow-up Visit Post Follow up Visit: Yes Assessment & Plan Diagnosis / Problem List (1) Routine Follow-Up: Plan Hypertension Plan: - Resume nifedipine 60 mg extended-release as previously prescribed. - Educate patient on importance of medication adherence and risks of preeclampsia. - Advise continued blood pressure monitoring. - Coordinate care with primary care physician for ongoing blood pressure management. - Follow up if any concerning symptoms develop. Care Plan: - Clear patient for resumption of normal activities, including exercise and sexual activity. - Advise to follow up with primary care physician for glucose monitoring and ongoing care. - Encourage continuation of pediatric care for the . Contraception Plan: - Support patient's decision to restart oral contraceptive pills. - Advise patient to follow through with primary care physician's plan for test and contraceptive prescription. (FP) Tobacco Smoking Status: Never smoker
--- NOTE | 2025-01-31 15:55 | AMB.OBVISIT ---
Allergies/Home Meds Allergies & Medications Allergies No Known Allergies Allergy (Verified 01/03/25 10:06) Intake Smoking Status Smoking Status: Never smoker Questionnaires PHQ-9 PHQ-2 Over the last 2 weeks, how often have you been bothered by any of the following problems? 1. Little interest or pleasure in doing things: not at all PHQ-9 8. Moving or speaking so slowly that other people could have noticed? - Or the opposite - being so fidgety or restless that you have been moving around a lot more than usual: not at all Total score: 0 Source: Developed by Drs. Damian Masters, Jessie Gomez, Jonathan Tapia and colleagues, with an educational carissa from [employer]. 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 Past Medical History: No Hx Neurological Disorders, No Hx Hypothyroidism, No Hx Hyperthyroidism, No Hx Breast Cancer, No Hx Cardiac Disorders, Yes Hx Hypertension, No Hx Cancer, No Hx Blood Disorders, No Hx Anemia, No Hx Gastrointestinal Disorders, No Hx Renal Disease, Yes Hx Diabetes Mellitus Type 1, Yes Hx Diabetes Mellitus Type 2, No Hx Tubal Ligation, No Hx Hysterectomy, No Psychiatric Problems and No Hx Polycystic Ovarian Syndrome History of Present Illness Tobacco Smoking Status: Never smoker Care OB Visit Log OB Flowsheet Initial Weight: Not Recorded Date <del>?</del> EGA Weight BP Alb Glu CTX Pres Fundal ht FHR Mov Dilation Station Effacement Hx Notes Visit Note 10/11/24 <del>?</del> 28w 2d 139.026 kg 124/81 30 145 active 10/25/24 <del>?</del> 30w 2d 139.423 kg 124/83 32 135 active 11/15/24 <del>?</del> 33w 2d 138.969 kg 128/78 145 active No CTX/LOF/VB. Reports good FM. No GROVES/VS, Epig/RUQ pain. Type 2 DM and gestational hypertension. Headache last week, attributed to hospital visits. BP good today. On metformin 1000 mg BID, aspirin, omeprazole, and ketoconazole shampoo (used 1?2x/week). Expressed concern about ketoconazole use in . Fasting sugars elevated (123?126 mg/dL). Attending 2x weekly NSTs and ultrasounds. FHR: 147 bpm (normal). Assessment & Plan: 33w2d with GDM and gestational hypertension. Mildly elevated fasting BGs on metformin alone. Adjust metformin to 1000 mg QD and add nighttime insulin Provide insulin instructions and monitor fasting BG daily x 1 week Follow up in 1 week to review glucose log Refill aspirin and continue Start low-dose antihypertensive (consider nifedipine or Limbitrol) Continue twice weekly NSTs and ultrasounds Limit ketoconazole shampoo to 1x/week Resolve referral issue with Dr. Moreno/Dr. Collins Discuss timing based on glycemic control (36?38w) Reviewed signs of labor and care counseling 11/29/24 <del>?</del> 35w 2d 139.026 kg 123/83 150 active with chronic hypertension - Increase labetalol to 400 mg PO BID for better 24-hour blood pressure control - Continue current schedule of NSTs and ultrasounds on Mondays and - Monitor biophysical profile scores and amniotic fluid levels - Continue blood glucose monitoring; noted to be really good - Follow-up appointment scheduled in one week - Inform patient that [facility] is not available at this hospital - Plan to use pre-neurodressing with adhesive for incision care post- section - Educate patient on benefits: seals area, prevents contamination, can be left in place for 2 weeks, allows showering - Inform patient that outcomes are comparable to [facility] - Schedule removal of dressing in office after 2 weeks post-operation 12/06/24 <del>?</del> 36w 2d 140.727 kg 134/85 145 active - section scheduled for December 15, 2024 at 12:30 PM - Patient to check in at 10:00 AM - NPO after midnight, including medications - Advised to hydrate well before midnight - No further visits scheduled before section - Provided work note for maternity leave - Leave to start on Thursday (December 09, 2024) - Initial leave duration set for 2 months from section date - Possibility of extension if needed REGINA Calculator Estimated Delivery Date Method Current WG Current Estimate 01/01/25 Ultrasound #1 44w 2d Other Estimates 12/13/24 LMP (Uncertain) 47w 0d Assessment & Plan Diagnosis / Problem List (1) Routine Follow-Up:
== END 2025-01-31 15:58 | disposition home or self-care (01) ==
LOC: HODSOBC 15:00
PROVIDERS: PCP Obstetrics & Gynecology; Referring Provider Obstetrics & Gynecology; Supervising Provider Obstetrics & Gynecology; Visit Provider Obstetrics & Gynecology
DX: Z39.2 Encounter for routine postpartum follow-up (principal); O10.93 Unspecified pre-existing hypertension complicating the puerperium; Z79.899 Other long term (current) drug therapy